=== PATIENT | female | born 1990 | race Caucasian/White ===

== ENCOUNTER 2017-12-12 20:29 | Outpatient (CLI) | payer OTHER ==
[2017-12-12 21:58] VITALS: BP 126/68; PULSE 90; RESP 15; TEMP 97.9
--- NOTE | 2018-01-03 11:01 | P.MSEPDOC ---
Presenting Problems - Arrival Data Date of Arrival on Unit: 12/12/17 Time of Arrival on Unit: 20:45 Mode of Transport: Wheelchair - Complaint OB-Reason for Admission/Chief Complaint: Possible Onset of Labor Comment: 12/11 states contractions every 15 mins Medical History - Information : 3 Para: 2 Term: 2 : 0 Abortions: Spontaneous or Elective: 0 Number of Living Children: 2 - Gestational Age Gestational Age by LLUVIA (wks/days): 38 Weeks and 3 Days - History Complications: Prior , Smoker, Hx. Substance Abuse Comment: THC last used 10/2017 Review of Systems - Review of Systems Constitutional: No problems Breast: No problems ENT: No problems Cardiovascular: No problems Respiratory: No problems Gastrointestinal: No problems Genitourinary: No problems Musculoskeletal: No problems Neurological: No problems Skin: No problems Vital Signs - Temperature Temperature: 97.9 F Temperature Source: Temporal Artery Scan - Pulse Pulse Oximetery Pulse Rate: 90 Pulse Assessment Method: Pulse Oximetry - Respirations Respiratory Rate: 15 Oxygen Delivery Method: Room Air - Blood Pressure Right Arm Blood Pressure: 126/68 Blood Pressure Mean: 87 Blood Pressure Source: Automatic Cuff Medical Screen Scoring (Pre) - Cervical Exam Dilation: 1-3 cm = 1 Membranes: Intact - Uterine Contractions Frequency: > 5 minutes apart = 1 Duration: N/A Intensity: N/A - Maternal Vital Signs Maternal Temperature: N/A Maternal Blood Pressure: N/A Signs of Preeclampsia: N/A Maternal Respirations: N/A - Pain Assessment Pain Location and Character: Back, Abdomen Pain Scale Used: Numeric (1 - 10) Pain Intensity: 2 Pain Management Goal: 2 Pain Description: *Acute Pain Radiation Location: none Pain Frequency: Intermittent Pain Duration: 1 Pain Duration Units: Days Pain Behavior: Fidgeting Pain Aggravating Factors: Contractions - Maternal Trauma Maternal Trauma: N/A - Assessment Baseline FHR: 140 Heart Rate - NICHD Category: Category I (Normal) = 0 NST: Reactive Position: N/A Station: N/A - Total Score Total Score (Pre): 2 - Level of Risk Level of Risk: Low (0-5) Physician Notification (Pre) - Physician Notified Physician Notified Date: 12/12/17 Physician Notified Time: 21:00 Physician/Practitioner Notifed:: Dr Yeung New Order Received: Yes Disposition - Disposition OB Disposition: Discharge to home Discharge Date: 12/12/17 Discharge Time: 22:00 I agree with the RN Medical Screening Exam: Yes Risk & Benefit of care provided described in d/c instruction: Yes Diagnosis: FALSE LABOR AT OR AFTER 37 COMPLETED WEEKS OF GESTATION
== END 2017-12-12 22:00 | disposition home or self-care (01) ==
LOC: FBPOP 20:29
PROVIDERS: ATTEND Obstetrics & Gynecology
DX: O47.1 False labor at or after 37 completed weeks of gestation (principal); Z3A.38 38 weeks gestation of pregnancy
CPT/HCPCS: 59025; G0463; 99213

== ENCOUNTER 2017-12-20 08:35 | Inpatient (IN) | payer MEDICAID, OTHER ==
[2017-12-16 10:35] VITALS: BMI 30.1
[2017-12-20] MEDS ORDERED: OXYTOCIN 10 UNIT/ML 1 ML VIAL IM PRN (10:20)
[2017-12-20] MEDS ORDERED: LIDOCAINE 1% (PF) 10 MG/ML (30 ML SDV) SQ PRN (10:20)
[2017-12-20] MEDS ORDERED: ceFAZolin IN SWFI 2 GM/20 ML SYRINGE IVP ONE (10:23)
[2017-12-20] MEDS ORDERED: CITRIC ACID-SODIUM CITRATE 15 ML CUP PO ONE (10:23)
[2017-12-20] MEDS: LACTATED RINGERS 1,000 ML IV SCH ×2 (10:55→17:58)
[2017-12-20 11:25] LABS: Basophils % (A) 0 %; Eosinophils # (A) 0.2 k/uL (0-0.7); Eosinophils % (A) 2 %; HCT 33.5 % (34.0-46.0); HGB 11.2 gm/dL (11.4-16.0); Lymphocytes # (A) 1.7 k/uL (1.0-4.8); Lymphocytes % (A) 18 %; MCH 29.3 pg (25.0-35.0); MCHC 33.5 g/dL (31.0-37.0); MCV 87.6 fL (80.0-100.0); Mean Platelet Volume 9.4; Monocytes # (A) 0.6 k/uL (0-1.0); Monocytes % (A) 6 %; Neutrophils # (A) 6.6 k/uL (1.3-7.7); Neutrophils % (A) 72 %; Platelet Count 167 k/uL (150-450); RBC 3.82 m/uL (3.80-5.40); RDW 13.9 % (11.5-15.5); WBC 9.2 k/uL (3.8-10.6)
[2017-12-20] MEDS ORDERED: OXYTOCIN 10 UNIT/ML 1 ML VIAL ONE (12:39)
[2017-12-20] MEDS ORDERED: ePHEDrine SULFATE/0.9% NACL/PF 50 MG/5 ML SYRINGE IV ONE (12:39)
[2017-12-20] MEDS ORDERED: ONDANSETRON 4 MG/2 ML VIAL ONE (12:39)
[2017-12-20] MEDS ORDERED: MORPHINE SULFATE (PF) 0.3 MG/0.3 ML SYR ONE (12:39)
[2017-12-20] MEDS ORDERED: KETOROLAC 30 MG/ML 1 ML VIAL ONE (12:39)
[2017-12-20] MEDS ORDERED: NALBUPHINE 10 MG/ML AMPUL ONE (12:39)
[2017-12-20] MEDS ORDERED: ZOLPIDEM 5 MG TAB PO PRN (13:31)
[2017-12-20] MEDS ORDERED: diphenhydrAMINE 25 MG CAP PO PRN (13:31)
[2017-12-20] MEDS ORDERED: ONDANSETRON 4 MG/2 ML VIAL IVP PRN (13:31)
[2017-12-20] MEDS ORDERED: diphenhydrAMINE 50 MG CAP PO PRN (13:31)
[2017-12-20] MEDS ORDERED: HYDROcodone/APAP 7.5-325MG 1 EACH TAB PO PRN (13:31)
[2017-12-20] MEDS ORDERED: METOCLOPRAMIDE 5 MG/ML 2 ML VIAL IVP PRN (13:31)
[2017-12-20] MEDS ORDERED: ACETAMINOPHEN TAB 325 MG TAB PO PRN (13:31)
[2017-12-20] MEDS ORDERED: diphenhydrAMINE 50 MG/ML 1 ML VIAL IVP PRN ×2 (13:31)
[2017-12-20] MEDS ORDERED: SIMETHICONE 80 MG CHEWABLE PO PRN (13:31)
[2017-12-20] MEDS ORDERED: HYDROcodone/APAP 5-325MG 1 EACH TAB PO PRN (13:31)
[2017-12-20] MEDS ORDERED: NALOXONE 0.4 MG/ML 1 ML VIAL IV PRN ×2 (13:31→13:51)
[2017-12-20] MEDS ORDERED: LANOLIN CREAM 5 GM TUBE TOPICAL PRN (13:31)
--- NOTE | 2017-12-20 13:39 | P.HPOB ---
History of Present Illness H&P Date: 12/20/17 Chief Complaint: 39+ weeks intrauterine , previous section, requesting rep The patient is a 27-year-old 3 para 2 scissors or 2 admitted at 39-4/7 weeks as established by last menstrual period and confirmed by 25 week ultrasound. Her has been relatively uncomplicated. She did have an episode of depression with a questionable suicide attempt early in the leading to inpatient management on the psychiatric unit for several weeks. This has not recurred during the . She otherwise has a history of 2 previous low transverse sections and requested a repeat, initially with tubal ligation but has more recently declined tubal ligation. She is also known to be group B strep positive. Obstetrical history: 3 para 2001 with 2 term deliveries without complications. Current statistics are listed in history present illness. EDC of 12/23/2017 was established by last menstrual period and confirmed by an 18 week ultrasound. Laboratory workup demonstrates a blood type of O+ with a negative antibody screen. Rubella status is immune. All the other laboratory workup initially was unremarkable and normal. Early Glucola as well as second trimester Glucola were within normal limits and group B strep status is positive. Gynecologic history: Unremarkable with no history of any infections to include STDs. Review of Systems Review of systems is confined to history of present illness. Past Medical History Past Medical History: GERD/Reflux History of Any Multi-Drug Resistant Organisms: None Reported Past Surgical History: Section, Tonsillectomy Past Anesthesia/Blood Transfusion Reactions: No Reported Reaction Past Psychological History: Depression Smoking Status: Current every day smoker Past Alcohol Use History: Abuse Additional Past Alcohol Use History / Comment(s): SMOKES 1/2 PPD SINCE AGE 13. binge drinks every Tuesday and Sat. night-HAD A GLASS OF WINE AT 30 WEEKS, AND THEN LAST TIME WAS APRIL 2017 Past Drug Use History: Heroin, Marijuana, Prescription Drug Abuse Additional Drug Use History / Comment(s): past history of heroin use last used Mar 2013. LAST TIME MARIJUANA USE OCTOBER 2017 - Past Family History Sister(s) Family Medical History: Cancer Medications and Allergies Home Medications Medication Instructions Recorded Confirmed Type Ranitidine HCl [Zantac] 150 mg PO BID 11/22/13 12/20/17 History Escitalopram [Lexapro] 10 mg PO DAILY #30 tablet 11/29/13 12/20/17 Rx Allergies Allergy/AdvReac Type Severity Reaction Status Date / Time methylphenidate HCl Allergy Confusion Verified 12/20/17 10:24 [From Concerta] Latex, Natural Rubber AdvReac Rash/Hives Verified 12/20/17 10:24 Exam - Vital Signs Vital signs: Vital Signs Temp Pulse Resp BP 12/20/17 10:32 97.9 F 81 16 120/75 Intake and Output 12/19/17 12/20/17 12/20/17 22:59 06:59 14:59 Other: Weight 97.976 kg In general, this is a well-developed, well-nourished white female in no acute distress. Her heart has a regular rhythm and rate without murmur. Her lungs are clear to auscultation bilaterally in all blackman. Her abdomen is gravid, nondistended, has normal active bowel sounds, is soft, nontender, and without any palpable masses aside from uterine fundus. Her extremities are without any cyanosis, clubbing, or edema and are nontender to palpation bilaterally. Digital cervical examination is deferred. Results Result Diagrams: 12/20/17 11:00 Abnormal Lab Results - Last 24 Hours (Table) 12/20/17 Range/Units 11:00 Hgb 11.2 L (11.4-16.0) gm/dL Hct 33.5 L (34.0-46.0) % Assessment and Plan (1) Term Current Visit: Yes Status: Acute Code(s): Z34.80 - ENCOUNTER FOR SUPRVSN OF NORMAL , UNSP TRIMESTER SNOMED Code(s): 02794117 (2) S/P section Current Visit: Yes Status: Acute Code(s): Z98.891 - HISTORY OF UTERINE SCAR FROM PREVIOUS SURGERY SNOMED Code(s): 041552818 Plan: The patient is admitted for repeat low transverse section. We have discussed on multiple levels the possibility of tubal ligation. This will be dependent upon the findings intra-abdominally. Should the uterus have an extremely thin lower uterine segment and further pregnancies appear significantly increased in danger, tubal ligation will be considered. Otherwise , should findings be relatively normal, the plan is to leave her fertility intact. The risks and complications of the procedure have been thoroughly discussed and she has understood all these and agreed to proceed.
[2017-12-20] MEDS ORDERED: OXYTOCIN 20 UNITS/1000 ML NS 1,000 ML IV SCH (13:45)
--- NOTE | 2017-12-20 13:45 | P.OP ---
Date of Procedure: 12/20/17 Preoperative Diagnosis: #1. Term , previous section, requesting repeat Postoperative Diagnosis: Same Procedure(s) Performed: #1. Repeat low transverse section Anesthesia: spinal Surgeon: Adonis Astorga Salesperson Pianos And Organs #1: Akanksha Yeung Estimated Blood Loss (ml): 400 IV fluids (ml): 1,000 Urine output (ml): 250 Pathology: other (Placenta) Condition: stable Disposition: PACU Operative Findings: Intraoperatively, the patient was noted to have mild to moderate scarring at the level of the fascia and muscles. The uterus itself appeared relatively free of scarring and had a relatively thick lower uterine segment. As result, tubal ligation was not performed. She was delivered of a viable 7 lbs. 7 oz. baby boy with Apgars of 8 at 1 minute and 9 at 5 minutes. The uterus, tubes, and ovaries were otherwise normal to inspection. The placenta was delivered manually, intact, and grossly normal with a grossly normal three-vessel cord. Description of Procedure: The patient was prepped and draped in usual fashion after spinal anesthesia was administered by the anesthesiologist. A Pfannenstiel incision was made through pre-existing scar and extended into the abdominal cavity without difficulty. The bladder peritoneum was left intact as it remained distal to the chosen incision site. A 2 cm incision was made in the transverse plane of the lower uterine segment to enter the uterus at which time clear fluid was noted. Incision was expanded in both directions using bandage scissors as well as bluntly. The head was delivered up and through the incision with some difficulty secondary to abdominal wall scarring. After delivery, the nose and mouth were thoroughly suctioned. Remainder of the infant was delivered onto the surgical field where the cord was doubly clamped, cut, and the infant passed for resuscitative measures with weight and Apgars as noted above. A segment of cord was doubly clamped, cut, and set aside should cord gases become necessary. The placenta was delivered manually and intact as noted above. The uterus was exteriorized and the interior cavity of uterus swept of any remaining placental or membranous fragments. The margins of the incision were grasped with Contreras clamps and the incision closed in 2 layers. The first layer was a running locking stitch of 0 chromic catgut followed by a running imbricating layer of 0 chromic catgut. Following closure, any small points of bleeding were made hemostatic with the Bovie. The posterior cul-de-sac was suctioned with a guard and the uterine and ovarian findings were normal as noted above. Uterus was replaced within the abdominal cavity and the gutters were swept of any remaining blood, fluid, or clot. The incision was reexamined and found to be hemostatic. The parietal peritoneum was loosely reapproximated and layer of muscles examined and made hemostatic with the Bovie. The fascia was closed with 2 running stitches of 0 Vicryl proceeding from the lateral points to the midpoint. The subcutaneous tissues were irrigated, made hemostatic with the Bovie, and reapproximated with a running stitch of 30 plain catgut. The skin was reapproximated with a running subcuticular stitch of 4-0 Vicryl followed by half-inch Steri-Strips placed with Mastisol. Estimated blood loss for the case was approximately 400 mL. There were no complications. All sponge, instrument, and needle counts were correct. Both mother and are resting comfortably in recovery.
[2017-12-20] MEDS ORDERED: NALBUPHINE 10 MG/ML AMPUL IV PRN (13:51)
[2017-12-20] MEDS ORDERED: MORPHINE SULFATE 2 MG/ML SYRINGE IVP PRN (13:51)
[2017-12-20] MEDS: IBUPROFEN 600 MG TAB PO PRN (20:31)
[2017-12-20] MEDS: SENNOSIDES-DOCUSATE SODIUM 1 EACH TAB PO SCH (20:32)
[2017-12-21] MEDS: LACTATED RINGERS 1,000 ML IV SCH ×2 (01:49→15:08)
--- NOTE | 2017-12-21 07:10 | P.PN ---
Progress Note - Text Progress Note Date: 12/21/17 Postoperative day 1 status post section under spinal anesthesia, and intrathecal morphine given for postoperative analgesia, patient doing well, there is no anesthesia related complications, Patient had no headache, vital signs stable , Assessment and plan= postop day 1 status post , doing well there is no anesthesia related complication.
[2017-12-21] MEDS: IBUPROFEN 600 MG TAB PO PRN ×2 (07:38→15:32)
[2017-12-21] MEDS: SENNOSIDES-DOCUSATE SODIUM 1 EACH TAB PO SCH ×2 (08:07→20:41)
[2017-12-21 08:09] LABS: Basophils % (A) 0 %; Eosinophils # (A) 0.2 k/uL (0-0.7); Eosinophils % (A) 2 %; HCT 27.7 % (34.0-46.0); Lymphocytes # (A) 1.5 k/uL (1.0-4.8); Lymphocytes % (A) 14 %; MCH 29.6 pg (25.0-35.0); MCHC 33.6 g/dL (31.0-37.0); MCV 88.2 fL (80.0-100.0); Mean Platelet Volume 9.8; Monocytes # (A) 0.7 k/uL (0-1.0); Monocytes % (A) 7 %; Neutrophils % (A) 76 %; Platelet Count 131 k/uL (150-450); RBC 3.14 m/uL (3.80-5.40); RDW 13.9 % (11.5-15.5); WBC 10.6 k/uL (3.8-10.6)
[2017-12-21 08:17] LABS: HGB 9.3 gm/dL (11.4-16.0)
--- NOTE | 2017-12-21 08:36 | P.PNOBGPC ---
Subjective - Subjective Patient reports: Reports appetite normal, Reports voiding normally, Reports pain well controlled, Reports ambulating normally : doing well Objective - Vital Signs Latest vital signs: Vital Signs Temp Pulse Resp BP Pulse Ox 12/21/17 08:00 98.0 F 64 16 104/55 12/21/17 04:00 97.8 F 66 18 120/66 12/20/17 23:42 97.8 F 88 15 122/65 12/20/17 23:41 88 18 12/20/17 22:00 18 100 12/20/17 20:00 97.8 F 88 18 113/69 12/20/17 18:00 16 12/20/17 16:26 16 12/20/17 15:25 96.4 F L 80 14 112/62 12/20/17 15:05 73 14 121/62 12/20/17 14:51 14 98 12/20/17 14:27 69 14 117/55 12/20/17 14:20 72 14 124/58 100 12/20/17 14:05 73 14 118/66 12/20/17 13:51 14 98 12/20/17 13:49 69 14 125/55 12/20/17 13:35 96.5 F L 79 16 113/56 12/20/17 10:32 97.9 F 81 16 120/75 Intake and Output 12/20/17 12/21/17 12/21/17 22:59 06:59 14:59 Intake Total 1300 700 Output Total 720 450 Balance 580 250 Intake: IV 1300 Lactated Ringers 1,000 ml 1300 @ 125 mls/hr IV .Q8H [facility] Rx#:[id number] Oral 700 Output: Urine 720 450 Uretheral (Gimenez) 420 - Exam Extremities: Present: normal Abdomen: Present: normal appearance, soft. Absent: distention, tenderness Incision: Present: normal, dry, intact Uterus: Present: normal, firm (Uterine fundus as tonic and nontender just below the umbilicus.) - Labs Labs: Abnormal Lab Results - Last 24 Hours (Table) 12/20/17 12/21/17 Range/Units 11:00 07:16 RBC 3.14 L (3.80-5.40) m/uL Hgb 11.2 L 9.3 L D (11.4-16.0) gm/dL Hct 33.5 L 27.7 L (34.0-46.0) % Plt Count 131 L (150-450) k/uL Neutrophils # 8.0 H (1.3-7.7) k/uL Assessment and Plan (1) Term Current Visit: Yes Status: Acute Code(s): Z34.80 - ENCOUNTER FOR SUPRVSN OF NORMAL , UNSP TRIMESTER SNOMED Code(s): 11576331 (2) S/P section Current Visit: Yes Status: Acute Code(s): Z98.891 - HISTORY OF UTERINE SCAR FROM PREVIOUS SURGERY SNOMED Code(s): 390553177 Plan: Continue routine postoperative care. I do anticipate discharge home tomorrow pending no complications. I have encouraged patient ambulating the halls at least 4 times daily. Her diet has already been advanced to regular.
--- NOTE | 2017-12-21 12:08 | P.DS ---
Providers Date of admission: 12/20/17 10:05 Expected date of discharge: 12/21/17 Attending physician: Adonis Astorga Primary care physician: Yrn Harry - Discharge Diagnosis(es) (1) Term Current Visit: Yes Status: Acute (2) S/P section Current Visit: Yes Status: Acute Hospital Course: the patient is a 27-year-old 3 para 2001 admitted at 39-4/7 weeks by good dating parameters. She is admitted for repeat low transverse section for which she signed consent in the office. Her was essentially uncomplicated though she was hospitalized for psychiatric concerns early in the . The remainder of her was without any psychiatric issues and she remained stable on Lexapro. She was taken to the operating room where she underwent repeat low transverse section in an incompetent fashion was delivered of a viable 7 lbs. 7 oz. baby boy with Apgars of 8 at 1 minute and 9 at 5 minutes. Her and postoperative course was unremarkable with vital signs remaining stable and her temperature was afebrile throughout. She requested discharge home on postoperative day #1 and was performing all activities of daily living at that time. As result, she was deemed stable for discharge and discharged to follow-up in the office in 2 weeks for an incision check and 6 weeks routinely. Discharge instructions included calling for any significantly increased bleeding or foul-smelling lochia, significantly increased fever abdominal pain, perineal complaints, breast complaints, incisional complaints, or anything else that concerned her. She is additionally instructed to have nothing in the vagina for at least 6 weeks time to include intercourse and to abstain from any heavy lifting over the same period of time. She was lastly instructed to do no driving until off of all pain medications or 2 weeks' time, whichever came first.she understood her instructions and agrees to follow up as noted above. Discharge medications included her normal home medications as well as continued vitamins as she has opted to breast-feed. She was additionally provided with a prescription for Tylenol 3, 1-2 by mouth every 6 hours when necessary pain, #20 dispensed with no refills. Maternal blood type is O+ and rubella status is immune. Discharge hemoglobin and hematocrit were9.3 and 27.7 respectively. As result, she was instructed to use iron sulfate over the next month on a daily basis to attempt to rebuild her blood count. Procedures: #1. Repeat low transverse section Patient Condition at Discharge: Good Plan - Discharge Summary Discharge Rx Participant: Yes New Discharge Prescriptions: No Action Ranitidine HCl [Zantac] 150 mg PO BID Escitalopram [Lexapro] 10 mg PO DAILY #30 tablet Discharge Medication List Ranitidine HCl [Zantac] 150 mg PO BID 11/22/13 [History] Escitalopram [Lexapro] 10 mg PO DAILY #30 tablet 11/29/13 [Rx] Follow up Appointment(s)/Referral(s): Adonis Astorga MD [STAFF PHYSICIAN] - 2 Weeks Discharge Disposition: HOME SELF-CARE
[2017-12-22 00:10] VITALS: RESP 16
[2017-12-22] MEDS: IBUPROFEN 600 MG TAB PO PRN (08:21)
[2017-12-22] MEDS: SENNOSIDES-DOCUSATE SODIUM 1 EACH TAB PO SCH (08:22)
[2017-12-22 08:28] VITALS: BP 119/62; PULSE 83; TEMP 98.4
== END 2017-12-22 10:40 | disposition home or self-care (01) | DRG 766 ==
LOC: 4FBP 10:05
PROVIDERS: ADMIT Obstetrics & Gynecology; ATTEND Obstetrics & Gynecology
PROC: 10D00Z1 Extraction of Products of Conception, Low, Open Approach (ICD-10-PCS; principal; 2017-12-20 12:39)
DX: O34.211 Maternal care for low transverse scar from previous cesarean delivery (principal); N85.8 Other specified noninflammatory disorders of uterus; Z3A.39 39 weeks gestation of pregnancy; Z37.0 Single live birth; F17.200 Nicotine dependence, unspecified, uncomplicated; F32.9 Major depressive disorder, single episode, unspecified; K21.9 Gastro-esophageal reflux disease without esophagitis; O99.334 Smoking (tobacco) complicating childbirth; O99.344 Other mental disorders complicating childbirth; O99.62 Diseases of the digestive system complicating childbirth; O99.824 Streptococcus B carrier state complicating childbirth; Z91.5 Personal history of self-harm; Z88.8 Allergy status to other drugs, medicaments and biological substances; Z91.040 Latex allergy status; F11.11 Opioid abuse, in remission; F12.11 Cannabis abuse, in remission
CPT/HCPCS: 85025; 86850; 86900; 86901; 88307

== ENCOUNTER 2018-03-05 20:42 | Emergency (ER) | payer OTHER ==
[2018-03-05 21:07] LABS: Appearance,Urine Clear (Clear); Bilirubin,Urine Negative (Negative); Blood,Urine Negative (Negative); Color,Urine Colorless; Glucose,Urine (UA) Negative (Negative); Ketones,Urine Negative (Negative); Leukocyte Esterase,Urine Negative (Negative); Nitrite,Urine Negative (Negative); Protein,Urine Negative (Negative); Specific Gravity,Urine 1.004 (1.001-1.035); Urobilinogen,Urine <2.0 mg/dL (<2.0)
[2018-03-05] MEDS ORDERED: SODIUM CHLORIDE 0.9% 2,000 ML IV STA (22:53)
[2018-03-05] MEDS ORDERED: ONDANSETRON 4 MG/2 ML VIAL IVP STA (22:53)
[2018-03-05 23:23] LABS: Basophils % (A) 1 %; Eosinophils # (A) 0.4 k/uL (0-0.7); Eosinophils % (A) 6 %; HCT 37.2 % (34.0-46.0); HGB 12.4 gm/dL (11.4-16.0); Lymphocytes # (A) 2.9 k/uL (1.0-4.8); Lymphocytes % (A) 39 %; MCH 28.2 pg (25.0-35.0); MCHC 33.3 g/dL (31.0-37.0); MCV 84.7 fL (80.0-100.0); Mean Platelet Volume 8.5; Monocytes # (A) 0.5 k/uL (0-1.0); Monocytes % (A) 7 %; Neutrophils # (A) 3.5 k/uL (1.3-7.7); Neutrophils % (A) 46 %; Platelet Count 191 k/uL (150-450); RBC 4.39 m/uL (3.80-5.40); RDW 14.7 % (11.5-15.5); WBC 7.5 k/uL (3.8-10.6)
[2018-03-05 23:33] LABS: ALT 55 U/L (9-52); AST 31 U/L (14-36); Albumin 4.1 g/dL (3.5-5.0); Alkaline Phosphatase 86 U/L (38-126); Anion Gap 8 mmol/L; Blood Urea Nitrogen 9 mg/dL (7-17); Calcium 9.4 mg/dL (8.4-10.2); Carbon Dioxide 23 mmol/L (22-30); Chloride 109 mmol/L (98-107); Glucose 89 mg/dL (74-99); Lipase 162 U/L (23-300); Magnesium 1.8 mg/dL (1.6-2.3); Potassium 3.9 mmol/L (3.5-5.1); Sodium 140 mmol/L (137-145); Total Bilirubin 0.3 mg/dL (0.2-1.3)
[2018-03-05 23:51] VITALS: RESP 17
--- NOTE | 2018-03-06 00:05 | ED ---
General Adult HPI - General Chief complaint: Nausea/Vomiting/Diarrhea Stated complaint: Finger Numbness/ flu symptoms Time Seen by Provider: 03/05/18 22:41 Source: patient Mode of arrival: ambulatory Limitations: no limitations - History of Present Illness Initial comments: Patient is a 27-year-old female presenting for nausea and vomiting. Patient states that her had "the flu" and that she thinks she contracted the same illness. For the last 4 days, she has had approximately 10 episodes of nausea, vomiting, diarrhea. She admits to chills but no fevers. She also denies any abdominal pain, dysuria or vaginal bleeding or discharge. - Related Data Home Medications Medication Instructions Recorded Confirmed Ranitidine HCl [Zantac] 150 mg PO BID 11/22/13 03/05/18 Previous Rx's Medication Instructions Recorded Escitalopram [Lexapro] 10 mg PO DAILY #30 tablet 11/29/13 Ondansetron Odt [Zofran Odt] 4 mg PO Q8HR PRN #15 tab 03/06/18 Allergies Allergy/AdvReac Type Severity Reaction Status Date / Time methylphenidate HCl Allergy Confusion Verified 03/05/18 20:57 [From Concerta] Latex, Natural Rubber AdvReac Rash/Hives Verified 03/05/18 20:57 Review of Systems ROS Statement: Those systems with pertinent positive or pertinent negative responses have been documented in the HPI. Constitutional: Positive for chills, negative for fatigue and fever. HENT: Negative for congestion. Respiratory: Negative for chest tightness, shortness of breath and wheezing. Negative for cough Cardiovascular: Negative for chest pain and palpitations. Gastrointestinal: Negative for abdominal pain. Negative for abdominal distention , positive for diarrhea, nausea and vomiting. Genitourinary: Negative for dysuria. Musculoskeletal: Negative for back pain, neck pain and neck stiffness. Skin: Negative for color change. Neurological: Negative for dizziness, speech difficulty, weakness and light- headedness. Psychiatric/Behavioral: Negative for agitation and confusion. Negative for anxiety ROS Other: All systems not noted in ROS Statement are negative. Past Medical History Past Medical History: GERD/Reflux History of Any Multi-Drug Resistant Organisms: None Reported Past Surgical History: Section, Tonsillectomy Past Anesthesia/Blood Transfusion Reactions: No Reported Reaction Past Psychological History: Anxiety, Depression Smoking Status: Current every day smoker Past Alcohol Use History: Abuse Past Drug Use History: Heroin, Marijuana, Prescription Drug Abuse - Past Family History Sister(s) Family Medical History: Cancer General Exam - General Exam Comments Initial Comments: Constitutional: Pt is oriented to person, place, and time. Pt appears well- developed and well-nourished. No distress. HENT: Head: Normocephalic and atraumatic. Eyes: EOM are normal. Neck: Normal range of motion. Neck supple. Cardiovascular: Normal rate, regular rhythm, S1 normal, S2 normal and normal heart sounds. Exam reveals no gallop and no friction rub. No murmur heard. Pulmonary/Chest: Effort normal and breath sounds normal. No tachypnea and no bradypnea. No respiratory distress. No wheezes or rales noted. Abdominal: Soft. Bowel sounds are normal. Pt exhibits no shifting dullness, no distension, no pulsatile liver, no fluid wave, no abdominal bruit and no ascites. There is no tenderness. There is no rigidity, no rebound, no guarding, no tenderness at McBurney's point and negative Minaya's sign. Musculoskeletal: Normal range of motion. Neurological: Pt is alert and oriented to person, place, and time. No cranial nerve deficit. Skin: Skin is warm and dry. No rash noted. Pt is not diaphoretic. No erythema. No pallor. Psychiatric: Pt has a normal mood and affect. Pt behavior is normal. Thought content normal. Limitations: no limitations Course Vital Signs 03/05/18 03/05/18 20:55 23:49 Temperature 98.7 F Pulse Rate 78 65 Respiratory 18 17 Rate Blood Pressure 131/71 122/71 O2 Sat by Pulse 99 99 Oximetry Medical Decision Making - Medical Decision Making Laboratory studies showed that there was no significant leukocytosis and there was mild elevation of ALT measured at 55. Urinalysis was negative for both infection and . Because physical exam was unremarkable, advance imaging was not completed. Patient was given IV fluids as well as Zofran and she stated that her symptoms completely resolved.It was explained that while there does not appear to be an emergent process, the etiology of the symptoms are still unclear but possibly related to viral illness and may need further workup as an outpatient if symptoms continue. Patient was reexamined prior to d/ c and found to be resting comfortably in bed in no acute distress.Explained all labs and diagnostic test results and that we will discharge the patient home and patient is to follow up with PCP in 1-2 days and return to the ED if symptoms worsen. Pt is agreeable to plan. - Lab Data Result diagrams: 03/05/18 23:00 03/05/18 23:00 Lab Results 03/05/18 03/05/18 03/05/18 Range/Units 20:58 20:58 23:00 WBC 7.5 (3.8-10.6) k/uL RBC 4.39 (3.80-5.40) m/uL Hgb 12.4 (11.4-16.0) gm/dL Hct 37.2 (34.0-46.0) % MCV 84.7 (80.0-100.0) fL MCH 28.2 (25.0-35.0) pg MCHC 33.3 (31.0-37.0) g/dL RDW 14.7 (11.5-15.5) % Plt Count 191 (150-450) k/uL Neutrophils % 46 % Lymphocytes % 39 % Monocytes % 7 % Eosinophils % 6 % Basophils % 1 % Neutrophils # 3.5 (1.3-7.7) k/uL Lymphocytes # 2.9 (1.0-4.8) k/uL Monocytes # 0.5 (0-1.0) k/uL Eosinophils # 0.4 (0-0.7) k/uL Basophils # 0.0 (0-0.2) k/uL Sodium (137-145) mmol/L Potassium (3.5-5.1) mmol/L Chloride (98-107) mmol/L Carbon Dioxide (22-30) mmol/L Anion Gap mmol/L BUN (7-17) mg/dL Creatinine (0.52-1.04) mg/dL Est GFR (CKD-EPI)AfAm (>60 ml/min/1.73 sqM) Est GFR (CKD-EPI)NonAf (>60 ml/min/1.73 sqM) Glucose (74-99) mg/dL Calcium (8.4-10.2) mg/dL Magnesium (1.6-2.3) mg/dL Total Bilirubin (0.2-1.3) mg/dL AST (14-36) U/L ALT (9-52) U/L Alkaline Phosphatase (38-126) U/L Total Protein (6.3-8.2) g/dL Albumin (3.5-5.0) g/dL Lipase (23-300) U/L Urine Color Colorless Urine Appearance Clear (Clear) Urine pH 7.0 (5.0-8.0) Ur Specific Jar[place] 1.004 (1.001-1.035) Urine Protein Negative (Negative) Urine Glucose (UA) Negative (Negative) Urine Ketones Negative (Negative) Urine Blood Negative (Negative) Urine Nitrite Negative (Negative) Urine Bilirubin Negative (Negative) Urine Urobilinogen <2.0 (<2.0) mg/dL Ur Leukocyte Esterase Negative (Negative) Urine HCG, Qual Not Detected (Not Detectd) 03/05/18 Range/Units 23:00 WBC (3.8-10.6) k/uL RBC (3.80-5.40) m/uL Hgb (11.4-16.0) gm/dL Hct (34.0-46.0) % MCV (80.0-100.0) fL MCH (25.0-35.0) pg MCHC (31.0-37.0) g/dL RDW (11.5-15.5) % Plt Count (150-450) k/uL Neutrophils % % Lymphocytes % % Monocytes % % Eosinophils % % Basophils % % Neutrophils # (1.3-7.7) k/uL Lymphocytes # (1.0-4.8) k/uL Monocytes # (0-1.0) k/uL Eosinophils # (0-0.7) k/uL Basophils # (0-0.2) k/uL Sodium 140 (137-145) mmol/L Potassium 3.9 (3.5-5.1) mmol/L Chloride 109 H (98-107) mmol/L Carbon Dioxide 23 (22-30) mmol/L Anion Gap 8 mmol/L BUN 9 (7-17) mg/dL Creatinine 0.60 (0.52-1.04) mg/dL Est GFR (CKD-EPI)AfAm >90 (>60 ml/min/1.73 sqM) Est GFR (CKD-EPI)NonAf >90 (>60 ml/min/1.73 sqM) Glucose 89 (74-99) mg/dL Calcium 9.4 (8.4-10.2) mg/dL Magnesium 1.8 (1.6-2.3) mg/dL Total Bilirubin 0.3 (0.2-1.3) mg/dL AST 31 (14-36) U/L ALT 55 H (9-52) U/L Alkaline Phosphatase 86 (38-126) U/L Total Protein 7.0 (6.3-8.2) g/dL Albumin 4.1 (3.5-5.0) g/dL Lipase 162 (23-300) U/L Urine Color Urine Appearance (Clear) Urine pH (5.0-8.0) Ur Specific [place] (1.001-1.035) Urine Protein (Negative) Urine Glucose (UA) (Negative) Urine Ketones (Negative) Urine Blood (Negative) Urine Nitrite (Negative) Urine Bilirubin (Negative) Urine Urobilinogen (<2.0) mg/dL Ur Leukocyte Esterase (Negative) Urine HCG, Qual (Not Detectd) Disposition Clinical Impression: Nausea and vomiting Disposition: HOME SELF-CARE Condition: Good Instructions: Acute Nausea and Vomiting (ED) Prescriptions: Ondansetron Odt [Zofran Odt] 4 mg PO Q8HR PRN #15 tab PRN Reason: Nausea And Vomiting Is patient prescribed a controlled substance at d/c from ED?: No Referrals: Yrn Harry MD [Primary Care Provider] - 1-2 days Time of Disposition: 00:05
[2018-03-06 00:54] VITALS: BP 123/86; PULSE 58; TEMP 98.2
== END 2018-03-06 00:55 | disposition home or self-care (01) ==
LOC: EC 20:42
DX: R11.2 Nausea with vomiting, unspecified (principal); R74.0 Nonspecific elevation of levels of transaminase and lactic acid dehydrogenase [LDH]; R19.7 Diarrhea, unspecified; R68.83 Chills (without fever); K21.9 Gastro-esophageal reflux disease without esophagitis; F17.200 Nicotine dependence, unspecified, uncomplicated; Z79.899 Other long term (current) drug therapy; Z88.8 Allergy status to other drugs, medicaments and biological substances; Z91.040 Latex allergy status
CPT/HCPCS: 36415; 80053; 83690; 83735; 85025; 81003; 81025; 99284; 96374; 96361; J2405

== ENCOUNTER 2019-04-02 19:40 | Outpatient (CLI) | payer OTHER ==
[2019-04-02 23:52] VITALS: BP 117/72; PULSE 83; RESP 16; TEMP 98.2
--- NOTE | 2019-05-07 08:09 | P.MSEPDOC ---
Presenting Problems - Arrival Data Date of Arrival on Unit: 04/02/19 Time of Arrival on Unit: 19:42 Mode of Transport: Ambulatory - Complaint OB-Reason for Admission/Chief Complaint: Possible Onset of Labor Comment: pt presents to tr with c/o cntrx on and off all day yesterday, worsening last. night, and continuing all day. pt states she called the office this morning and was told. to "get checked out." pt denies any bleeding or leaking. pt states cntrx are 6-10. minutes apart. denies any bleeding or leaking Medical History - Information : 4 Para: 3 Term: 0 : 0 Abortions: Spontaneous or Elective: 0 Number of Living Children: 3 - Gestational Age Gestational Age by LLUVIA (wks/days): 37 Weeks and 4 Days - History Complications: GBS+, Hx. Substance Abuse Comment: history of thc usage in Review of Systems - Review of Systems Constitutional: No problems Breast: No problems ENT: No problems Cardiovascular: No problems Respiratory: No problems Gastrointestinal: No problems Genitourinary: No problems Musculoskeletal: No problems Neurological: No problems Skin: No problems Vital Signs - Temperature Temperature: 98.2 F - Pulse Right Pulse Rate: 83 Pulse Assessment Method: Automatic Cuff - Respirations Respiratory Rate: 16 Oxygen Delivery Method: Room Air O2 Sat by Pulse Oximetry: 98 - Blood Pressure Right Arm Blood Pressure: 117/72 Blood Pressure Mean: 87 Blood Pressure Source: Automatic Cuff Medical Screen Scoring (Pre) - Cervical Exam Dilation: 1-3 cm = 1 Membranes: Intact - Uterine Contractions Frequency: > 5 minutes apart = 1 Duration: N/A Intensity: N/A - Maternal Vital Signs Maternal Temperature: N/A Maternal Blood Pressure: N/A Signs of Preeclampsia: N/A Maternal Respirations: N/A - Maternal Trauma Maternal Trauma: N/A - Assessment - Baby A Baseline FHR: 115 Heart Rate - NICHD Category: Category I (Normal) = 0 NST: Reactive Position: N/A Station: N/A - Total Score - Baby A Total Score - Baby A: 2 - Total Score - Baby B Total Score - Baby B: 2 - Total Score - Baby C Total Score - Baby C: 2 - Level of Risk - Baby A Level of Risk - Baby A: Low (0-5) - Level of Risk - Baby B Level of Risk - Baby B: Low (0-5) - Level of Risk - Baby C Level of Risk - Baby C: Low (0-5) Physician Notification (Pre) - Physician Notified Physician Notified Date: 04/02/19 Physician Notified Time: 21:12 Physician/Practitioner Notifed:: Dr Yeung Spoke With: Dr Yeung New Order Received: Yes - Notification Comment Comment: Dr Yeung updated by phone of reactive NST. CAT 1 FHT. 4 contractions in 1 hour. mild in nature with mild cramping. PT's bp wnl limits. denies pain besides mild. cramping. orders to recheck cervix and if no change pt may discharge home and keep appt. on Tuesday this week with Dr Saleh Disposition - Disposition OB Disposition: Physician follow up in office, Discharge to home Discharge Date: 04/02/19 Discharge Time: 21:20 I agree with the RN Medical Screening Exam: Yes Risk & Benefit of care provided described in d/c instruction: Yes Diagnosis: FALSE LABOR AT OR AFTER 37 COMPLETED WEEKS OF GESTATION
== END 2019-04-02 21:20 | disposition home or self-care (01) ==
LOC: FBPOP 19:40
PROVIDERS: ATTEND Obstetrics & Gynecology
DX: O47.1 False labor at or after 37 completed weeks of gestation (principal); Z3A.37 37 weeks gestation of pregnancy
CPT/HCPCS: 59025; G0463; 99213

== ENCOUNTER 2019-04-16 11:02 | Outpatient (CLI) | payer OTHER ==
[2019-04-16 12:07] VITALS: BP 123/74; PULSE 90; RESP 16; TEMP 97.3
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
== END 2019-04-16 12:50 | disposition home or self-care (01) ==
LOC: FBPOP 11:02
PROVIDERS: ATTEND Obstetrics & Gynecology
DX: O26.93 Pregnancy related conditions, unspecified, third trimester (principal); Z3A.39 39 weeks gestation of pregnancy
CPT/HCPCS: 59025; G0463; 99213

== ENCOUNTER 2019-04-17 20:24 | Outpatient (CLI) | payer OTHER ==
[2019-04-17 20:40] VITALS: BP 126/67; PULSE 89; RESP 16; TEMP 98.3
--- NOTE | 2019-05-07 08:03 | P.MSEPDOC ---
Presenting Problems - Arrival Data Date of Arrival on Unit: 04/17/19 Time of Arrival on Unit: 20:24 Mode of Transport: Ambulatory - Complaint OB-Reason for Admission/Chief Complaint: Possible Onset of Labor Comment: contractions began yesterday after her dog jumped on her abdomen, pt states the contractions became stronger a few hours ago and that she was timing them every 4-6 minutes. Medical History - Information : 4 Para: 3 Term: 3 : 0 Abortions: Spontaneous or Elective: 0 Number of Living Children: 3 - Gestational Age Gestational Age by LLUVIA (wks/days): 39 Weeks and 5 Days - History Complications: Prior , Smoker Comment: pt states she also smokes marijuana at night before bed. Review of Systems - Review of Systems Constitutional: No problems Breast: No problems ENT: No problems Cardiovascular: No problems Respiratory: No problems Gastrointestinal: No problems Genitourinary: No problems Musculoskeletal: No problems Neurological: No problems Skin: No problems Vital Signs - Temperature Temperature: 98.3 F Temperature Source: Oral - Pulse Right Brachial Pulse Rate: 89 Pulse Assessment Method: Pulse Oximetry - Respirations Respiratory Rate: 16 Oxygen Delivery Method: Room Air O2 Sat by Pulse Oximetry: 98 - Blood Pressure Right Arm Blood Pressure: 126/67 Blood Pressure Mean: 86 Blood Pressure Source: Automatic Cuff Medical Screen Scoring (Pre) - Cervical Exam Dilation: 0 cm = 0 Membranes: Intact - Uterine Contractions Frequency: > 5 minutes apart = 1 Duration: > 40 seconds = 2 Intensity: N/A - Maternal Vital Signs Maternal Temperature: N/A Maternal Blood Pressure: N/A Signs of Preeclampsia: N/A Maternal Respirations: N/A - Maternal Trauma Maternal Trauma: N/A - Assessment - Baby A Baseline FHR: 125 Heart Rate - NICHD Category: Category I (Normal) = 0 NST: Reactive Position: N/A Station: N/A - Total Score - Baby A Total Score - Baby A: 3 - Total Score - Baby B Total Score - Baby B: 3 - Total Score - Baby C Total Score - Baby C: 3 - Level of Risk - Baby A Level of Risk - Baby A: Low (0-5) - Level of Risk - Baby B Level of Risk - Baby B: Low (0-5) - Level of Risk - Baby C Level of Risk - Baby C: Low (0-5) Physician Notification (Pre) - Physician Notified Physician Notified Date: 04/17/19 Physician Notified Time: 20:05 Physician/Practitioner Notifed:: Dr Yeung Spoke With: Dr Yeung via telephone New Order Received: Yes - Notification Comment Comment: pt here for contractions (pt repeat C/S), states contractions 4-6 minutes at home. here are tracing 8-12 min apart. cervix closed, 50%, high. order to recheck cervix after an hour and if no cervical change to discharge pt home with instructions for no intercourse, increase fluids and to follow up with Dr Astorga. Disposition - Disposition OB Disposition: Physician follow up in office, Discharge to home Discharge Date: 04/17/19 Discharge Time: 21:47 I agree with the RN Medical Screening Exam: Yes Risk & Benefit of care provided described in d/c instruction: Yes Diagnosis: FALSE LABOR AT OR AFTER 37 COMPLETED WEEKS OF GESTATION
== END 2019-04-17 21:47 | disposition home or self-care (01) ==
LOC: FBPOP 20:24
PROVIDERS: ATTEND Obstetrics & Gynecology
DX: O47.1 False labor at or after 37 completed weeks of gestation (principal)
CPT/HCPCS: 59025; G0463; 99213

== ENCOUNTER 2019-04-20 08:07 | Inpatient (IN) | payer OTHER ==
[2019-04-20] MEDS ORDERED: CITRIC ACID-SODIUM CITRATE 15 ML CUP PO ONE (08:24)
[2019-04-20] MEDS ORDERED: LACTATED RINGERS 1,000 ML IV SCH (08:30)
[2019-04-20 08:49] LABS: Basophils % (A) 0 %; Eosinophils # (A) 0.2 k/uL (0-0.7); Eosinophils % (A) 2 %; HGB 11.5 gm/dL (11.4-16.0); Lymphocytes # (A) 1.7 k/uL (1.0-4.8); Lymphocytes % (A) 16 %; MCH 29.3 pg (25.0-35.0); MCHC 32.8 g/dL (31.0-37.0); MCV 89.4 fL (80.0-100.0); Mean Platelet Volume 9.6; Monocytes # (A) 0.8 k/uL (0-1.0); Monocytes % (A) 7 %; Neutrophils % (A) 72 %; Platelet Count 174 k/uL (150-450); RBC 3.92 m/uL (3.80-5.40); RDW 13.3 % (11.5-15.5); WBC 11.2 k/uL (3.8-10.6)
[2019-04-20 08:50] VITALS: BMI 31.6
--- NOTE | 2019-04-20 09:45 | P.HPOB ---
History of Present Illness H&P Date: 04/20/19 Chief Complaint: 40 and one sevenths weeks, previous 3, undesired fertility The patient is a 29-year-old 4 para 3003 admitted at 40 and one sevenths weeks as established by a 6 week ultrasound. She is admitted for repeat low transverse section having had 3 previous sections. She additionally has requested intraoperative bilateral tubal occlusion with Filshie clips and signed consent to that effect in the office. Her has o therwise been essentially uncomplicated though group B strep status is positive. Obstetrical history: 4 para 3003 with 3 term sections as noted above. Current statistics are listed in history of present illness. EDC of 04/19/2019 was established by 6 week ultrasound. Laboratory workup demonstrates a blood type of O+ with a negative antibody screen. Rubella status is immune. Remainder of the laboratory workup was within normal limits. Early Glucola as well as second trimester Glucola were within normal limits. Group B strep status is positive. Gynecologic history: Unremarkable with no history of any infections to include STDs. Review of Systems Review of systems is confined to history of present illness. Past Medical History Past Medical History: GERD/Reflux History of Any Multi-Drug Resistant Organisms: None Reported Past Surgical History: Section, Tonsillectomy Past Anesthesia/Blood Transfusion Reactions: No Reported Reaction Past Psychological History: Anxiety, Bipolar, Depression, Schizophrenia Smoking Status: Current every day smoker Past Drug Use History: Marijuana Additional Drug Use History / Comment(s): past history of heroin use last used Mar 2012, every day marijuana use - Past Family History Sister(s) Family Medical History: Cancer Father Family Medical History: Hypertension Medications and Allergies Home Medications Medication Instructions Recorded Confirmed Type Ondansetron Odt [Zofran Odt] 4 mg PO Q8HR PRN #15 tab 03/06/18 04/20/19 Rx Omeprazole [PriLOSEC] 40 mg PO DAILY 04/02/19 04/20/19 History RX: Melatonin 3 mg PO HS 04/17/19 04/20/19 History Allergies Allergy/AdvReac Type Severity Reaction Status Date / Time methylphenidate HCl Allergy Anaphylaxis Verified 04/20/19 08:23 [From Concerta] Latex, Natural Rubber AdvReac Rash/Hives Verified 04/20/19 08:23 Exam Vital Signs Temp Pulse Resp BP Pulse Ox 10/04/19 08:41 97.5 F L 86 16 124/76 98 Intake and Output 04/19/19 04/20/19 04/20/19 22:59 06:59 14:59 Other: Weight 102.965 kg In general, this is a well-developed, well-nourished white female in no acute distress. Her heart has a regular rhythm and rate without murmur. Her lungs are clear to auscultation bilaterally in all blackman. Her abdomen is gravid, nondistended, has normal active bowel sounds, is soft, nontender, and without any palpable masses aside from uterine fundus. Her extremities are without any cyanosis, clubbing, or edema and are nontender to palpation bilaterally. Digital cervical examination is deferred. Results Result Diagrams: 04/20/19 08:35 Abnormal Lab Results - Last 24 Hours (Table) 04/20/19 Range/Units 08:35 WBC 11.2 H (3.8-10.6) k/uL Neutrophils # 8.0 H (1.3-7.7) k/uL Assessment and Plan (1) Family planning Current Visit: Yes Status: Acute Code(s): Z30.09 - ENCOUNTER FOR OTH GENERAL CNSL AND ADVICE ON CONTRACEPTION SNOMED Code(s): 000003987 (2) Term Current Visit: Yes Status: Acute Code(s): Z34.80 - ENCOUNTER FOR SUPRVSN OF NORMAL , UNSP TRIMESTER SNOMED Code(s): 33335803 (3) Previous section Current Visit: Yes Status: Acute Code(s): Z98.891 - HISTORY OF UTERINE SCAR FROM PREVIOUS SURGERY SNOMED Code(s): 070138298 Plan: The patient is admitted for repeat low transverse section with i ntraoperative bilateral tubal occlusion using Filshie clips. The risks and complications of the procedure been thoroughly discussed including the permanent nature of tubal ligation as well as the failure rate and risk for potential ectopic . She has understood all this and agrees to proceed.
[2019-04-20] MEDS ORDERED: diphenhydrAMINE 50 MG CAP PO PRN (10:53)
[2019-04-20] MEDS ORDERED: ONDANSETRON 4 MG/2 ML VIAL IVP PRN (10:53)
[2019-04-20] MEDS ORDERED: HYDROcodone/APAP 7.5-325MG 1 EACH TAB PO PRN (10:53)
[2019-04-20] MEDS ORDERED: diphenhydrAMINE 25 MG CAP PO PRN (10:53)
[2019-04-20] MEDS ORDERED: LANOLIN CREAM 5 GM TUBE TOPICAL PRN (10:53)
[2019-04-20] MEDS ORDERED: ACETAMINOPHEN TAB 325 MG TAB PO PRN (10:53)
[2019-04-20] MEDS ORDERED: SIMETHICONE 80 MG CHEWABLE PO PRN (10:53)
[2019-04-20] MEDS ORDERED: NALOXONE 0.4 MG/ML 1 ML VIAL IV PRN (10:53)
[2019-04-20] MEDS ORDERED: diphenhydrAMINE 50 MG/ML 1 ML VIAL IVP PRN ×2 (10:53)
[2019-04-20] MEDS ORDERED: ZOLPIDEM 5 MG TAB PO PRN (10:53)
[2019-04-20] MEDS ORDERED: METOCLOPRAMIDE 5 MG/ML 2 ML VIAL IVP PRN (10:53)
[2019-04-20] MEDS ORDERED: OXYTOCIN 20 UNITS/1000 ML NS 1,000 ML IV SCH (11:00)
--- NOTE | 2019-04-20 11:00 | P.OP ---
Date of Procedure: 04/20/19 Preoperative Diagnosis: #1. 40 and one sevenths weeks, previous 3 #2. Undesired fertility Postoperative Diagnosis: Same Procedure(s) Performed: #1. Repeat low transverse section #2. Intraoperative bilateral tubal occlusion with Filshie clips Anesthesia: spinal Surgeon: Adonis Astorga Business Job Titles #1: [employer] Estimated Blood Loss (ml): 600 IV fluids (ml): 1,100 Urine output (ml): 350 Pathology: none sent Condition: stable Disposition: floor Operative Findings: Intraoperatively, there was a moderate amount of scar tissue at the level of the fascia. The uterus and bladder flap were relatively unaffected. She was delivered of a viable 8 lbs. 5 oz. baby girl with Apgars of 9 at 1 minute and 9 at 5 minutes. There was light meconium-stained fluid present. The uterus, t ubes, and ovaries were entirely normal. The placenta was delivered manually, intact, and grossly normal aside from having meconium-stained membranes. There was a grossly normal three-vessel cord. Description of Procedure: The patient was prepped and draped in usual fashion after spinal anesthesia was administered by the anesthesiologist. A Pfannenstiel incision was made through pre-existing scar and extended into the abdominal cavity with minimal difficulty. There was a moderate amount of scarring at the fascia and rectus muscles. The bladder peritoneum was elevated, incised, and reflected distally. A 2 cm incision was made in the transverse plane of the lower uterine segment to enter the uterus at which time light meconium-stained fluid was present and note d. Incision was extended in both directions using the bandage scissors. The head was delivered up and through the incision where the nose and mouth were thoroughly suctioned. The fetus was immediately vigorous uterine prior to delivery of the shoulders. The remainder of the infant was delivered onto the field where the cord was doubly clamped, cut, and the was passed for resuscitative measures with weight and Apgars as noted above. A segment of cord was then doubly clamped, cut, and set aside should cord gases become necessary. The placenta was delivered manually and intact as noted above. The uterus was exteriorized and the interior cavity of the uterus was swept of any remaining placental or membranous fragments. The margins of the incision were grasped with Contreras clamps and the incision was closed with a running locking stitch of 0 chromic catgut from margin to margin in a single layer. Any small points of bleeding were made hemostatic with the Bovie. The posterior cul-de-sac was suctioned with a guard and attention was turned to the tubes. The patient reaffirmed her desire for tubal ligation and a Filshie clip was firmly placed across each fallopian tube in the isthmic portion approximately 2-3 cm from the cornu of. The uterus was replaced within the abdominal cavity and the gutters were swept of any remaining blood, fluid, or clot. The incision was reexamined and found to be hemostatic. The parietal peritoneum was loosely reapproximated with muscles were noted to be fairly significantly gaping. As result, a loose large [id number] stitch of 0 chromic catgut was utilized to reapproximate the muscles in the midline. The fascia was closed with 2 running stitches of 0 Vicryl proceeding from lateral margins to midpoint. The subcutaneous tissues were irrigated, made hemostatic with the Bovie, and reapproximated with a running stitch of 30 plain catgut. The skin was reapproximated with a running subcuticular stitch of 4-0 Vicryl followed by half-inch Steri-Strips placed with Mastisol. Estimated blood loss for the case is approximately 600 mL. There were no complications. All sponge, instrument, and needle counts were correct. The patient tolerated the procedure well and proceeded to the recovery room in stable condition. Both mother and infant are resting comfortably in recovery.
[2019-04-20] MEDS: LACTATED RINGERS 1,000 ML IV SCH ×2 (11:18→21:36)
[2019-04-20] MEDS: KETOROLAC 30 MG/ML 1 ML VIAL IVP PRN (19:57)
[2019-04-20] MEDS: SENNOSIDES-DOCUSATE SODIUM 1 EACH TAB PO SCH (21:36)
[2019-04-21] MEDS: KETOROLAC 30 MG/ML 1 ML VIAL IVP PRN ×2 (02:35→08:29)
[2019-04-21] MEDS: LACTATED RINGERS 1,000 ML IV SCH (04:43)
[2019-04-21 07:07] LABS: Basophils % (A) 0 %; Eosinophils # (A) 0.2 k/uL (0-0.7); Eosinophils % (A) 2 %; HCT 30.4 % (34.0-46.0); Lymphocytes # (A) 1.3 k/uL (1.0-4.8); Lymphocytes % (A) 14 %; MCH 29.6 pg (25.0-35.0); MCHC 32.4 g/dL (31.0-37.0); MCV 91.3 fL (80.0-100.0); Mean Platelet Volume 9.8; Monocytes # (A) 0.6 k/uL (0-1.0); Monocytes % (A) 7 %; Neutrophils # (A) 7.4 k/uL (1.3-7.7); Neutrophils % (A) 75 %; Platelet Count 121 k/uL (150-450); RBC 3.33 m/uL (3.80-5.40); RDW 13.3 % (11.5-15.5); WBC 9.8 k/uL (3.8-10.6)
[2019-04-21 07:09] LABS: HGB 9.9 gm/dL (11.4-16.0)
[2019-04-21] MEDS: SENNOSIDES-DOCUSATE SODIUM 1 EACH TAB PO SCH ×3 (08:30→19:20)
--- NOTE | 2019-04-21 11:22 | P.PN ---
Subjective Progress Note Date: 04/21/19 Principal diagnosis: Postoperative day #1 Slept well. Minimal pain. Minimal to moderate lochia rubra. No complaints. Objective - Vital Signs Vital signs: Vital Signs Temp 98.3 F 04/21/19 08:00 Pulse 79 04/21/19 08:00 Resp 16 04/21/19 08:00 BP 110/63 04/21/19 08:00 Pulse Ox 98 04/21/19 04:00 Intake & Output 04/20/19 04/21/19 04/21/19 18:59 06:59 18:59 Intake Total 1100 600 Output Total 1850 250 700 Balance -750 350 -700 Weight 102.965 kg Intake: IV 1100 Oral 600 Output: Urine 1250 250 700 Uretheral (Gimenez) 300 Estimated Blood Loss 600 - Constitutional General appearance: Present: average body habitus, cooperative - EENT Eyes: Present: PERRLA ENT: Present: hearing grossly normal - Neck Neck: Present: normal ROM - Respiratory Respiratory: bilateral: CTA - Cardiovascular Rhythm: regular - Gastrointestinal General gastrointestinal: Present: normal bowel sounds - Genitourinary Genitourinary Comment(s): Incision clean and dry, intact, Steri-Strips applied. Fundus firm, midline, symmetric, 18 week size. - Integumentary Integumentary: Present: normal - Neurologic Neurologic: Present: CNII-XII intact - Musculoskeletal Musculoskeletal: Present: gait normal, strength equal bilaterally - Psychiatric Psychiatric: Present: A&O x's 3, appropriate affect, intact judgment & insight - Labs CBC & Chem 7: 04/21/19 06:42 Labs: Abnormal Lab Results - Last 24 Hours (Table) 04/21/19 Range/Units 06:42 RBC 3.33 L (3.80-5.40) m/uL Hgb 9.9 L D (11.4-16.0) gm/dL Hct 30.4 L (34.0-46.0) % Plt Count 121 L (150-450) k/uL Assessment and Plan Assessment: Doing well postoperative day #1 Plan: Continue postoperative care. Advanced diet and activity. Time with Patient: Less than 30
[2019-04-21] MEDS: HYDROcodone/APAP 5-325MG 1 EACH TAB PO PRN ×2 (13:21→22:05)
[2019-04-21] MEDS: IBUPROFEN 600 MG TAB PO PRN (17:43)
--- NOTE | 2019-04-21 18:41 | P.PN ---
Progress Note - Text Progress Note Date: 04/21/19 Postop day 1 from with spinal Duramorph. Patient doing well, minimal pain, minimal pruritus. She been able to ambulate and urinate on her own. There is no paresthesias or lower extremity weakness. Anesthesia we'll sign off
[2019-04-22] MEDS: IBUPROFEN 600 MG TAB PO PRN ×2 (02:12→10:16)
[2019-04-22] MEDS: HYDROcodone/APAP 5-325MG 1 EACH TAB PO PRN (04:40)
[2019-04-22 08:09] VITALS: BP 129/76; PULSE 92; RESP 16; TEMP 98.1
[2019-04-22] MEDS: SENNOSIDES-DOCUSATE SODIUM 1 EACH TAB PO SCH (08:11)
--- NOTE | 2019-04-22 10:41 | P.DS ---
Providers Date of admission: 04/20/19 08:07 Expected date of discharge: 04/22/19 Attending physician: Adonis Astorga Primary care physician: Yrn Osoriomley [facility] Course: This is a 29-year-old white female 4 para 3003 EDC 04/19/2019 at 40 and one sevenths weeks' gestation. Patient presented for repeat section and tubal ligation. is remarkable for consistent marijuana use. Patient has a history of bipolar disorder and schizophrenia. She in addition is a tobacco smoker. Blood type is O+, rubella status immune. Group B strep cultures positive. We see dictated history and physical for details. Patient underwent a repeat low transverse section with tubal ligation on 04/20/2019. She gave to a liveborn female infant with scores of 9 and 9 at one and 5 minutes respectively. Infant weighed 8 lbs. 5 oz. or 3770 g. Tubal ligation was performed per her request. Please see dictated operative note for details. This morning the patient is doing well. She is voiding, ambulating, passing flatus without difficulty. Vital signs are stable and she is afebrile. Incision is clean and dry, intact, with Mastisol and Steri-Strips applied. It is nontender and well approximated. Uterus is firm, mobile, midline, nontender, symmetric and 18 week size. Patient's vital signs are stable and she has been afebrile. She is breast-feeding without difficulty. Lochia rubra is minimal. Patient is judged to be in good condition for discharge home. She will use ibuprofen products, 200 mg pills, 3 every 6 hours or for every 8 hours as needed for pain. Motrin 600 mg has been working well for the patient here. I have recommended that she continue taking her Lexapro 10 mg daily, and she has a prescription of this at home. She denies at this time any unusual ideation, and states she has good family support at home. She will call with any fevers shakes or chills, foul smelling or copious lochia, with the passage of large blood clots, with any pain not alleviated by [id number] products, or indeed with any concerns. She will follow-up in the office with her primary physician in 2 weeks. Patient Condition at Discharge: Good Plan - Discharge Summary Discharge Rx Participant: No New Discharge Prescriptions: No Action Ondansetron Odt [Zofran Odt] 4 mg PO Q8HR PRN #15 tab PRN Reason: Nausea And Vomiting Omeprazole [PriLOSEC] 40 mg PO DAILY Melatonin 3 mg PO HS Discharge Medication List Ondansetron Odt [Zofran Odt] 4 mg PO Q8HR PRN #15 tab 03/06/18 [Rx] Omeprazole [PriLOSEC] 40 mg PO DAILY 04/02/19 [History] Melatonin 3 mg PO HS 04/17/19 [History] Follow up Appointment(s)/Referral(s): Adonis Astorga MD [STAFF PHYSICIAN] - 2 Weeks
[2019-04-23] MEDS ORDERED: KETOROLAC 30 MG/ML 1 ML VIAL ONE (09:55)
[2019-04-23] MEDS ORDERED: diphenhydrAMINE 50 MG/ML 1 ML VIAL ONE (09:55)
[2019-04-23] MEDS ORDERED: ONDANSETRON 4 MG/2 ML VIAL ONE (09:55)
[2019-04-23] MEDS ORDERED: NALBUPHINE 10 MG/ML (1 ML AMP) ONE (09:55)
[2019-04-23] MEDS ORDERED: OXYTOCIN 10 UNIT/ML 1 ML VIAL ONE (09:55)
[2019-04-23] MEDS ORDERED: MORPHINE SULFATE (PF) 0.3 MG/0.3 ML SYR ONE (09:55)
== END 2019-04-22 11:09 | disposition home or self-care (01) | DRG 784 ==
LOC: 4FBP 08:07
PROVIDERS: ADMIT Obstetrics & Gynecology; ATTEND Obstetrics & Gynecology
PROC: 0UL70CZ Occlusion of Bilateral Fallopian Tubes with Extraluminal Device, Open Approach (ICD-10-PCS; 2019-04-20)
PROC: 10D00Z1 Extraction of Products of Conception, Low, Open Approach (ICD-10-PCS; principal; 2019-04-20 10:00)
DX: O34.211 Maternal care for low transverse scar from previous cesarean delivery (principal); O99.324 Drug use complicating childbirth; F12.90 Cannabis use, unspecified, uncomplicated; O99.824 Streptococcus B carrier state complicating childbirth; O77.0 Labor and delivery complicated by meconium in amniotic fluid; Z30.2 Encounter for sterilization; Z37.0 Single live birth; Z3A.40 40 weeks gestation of pregnancy; O99.62 Diseases of the digestive system complicating childbirth; N85.8 Other specified noninflammatory disorders of uterus; K21.9 Gastro-esophageal reflux disease without esophagitis; F11.11 Opioid abuse, in remission; O99.334 Smoking (tobacco) complicating childbirth; F17.200 Nicotine dependence, unspecified, uncomplicated; Z71.6 Tobacco abuse counseling; Z98.890 Other specified postprocedural states; Z79.899 Other long term (current) drug therapy; Z86.59 Personal history of other mental and behavioral disorders; Z88.8 Allergy status to other drugs, medicaments and biological substances; Z91.040 Latex allergy status; Z82.49 Family history of ischemic heart disease and other diseases of the circulatory system
CPT/HCPCS: 85025; 86850; 86900; 86901

== ENCOUNTER 2019-08-31 19:03 | Emergency (ER) | payer OTHER ==
--- NOTE | 2019-08-31 19:38 | ED ---
General Adult HPI - General Chief complaint: Anxiety Stated complaint: Anxiety Time Seen by Provider: 08/31/19 19:12 Source: patient, RN notes reviewed Mode of arrival: ambulatory Limitations: no limitations - History of Present Illness Initial comments: 29-year-old female with a past medical history of anxiety, bipolar disorder, depression, schizophrenia, borderline personality disorder presents to the emergency department for increased anxiety. Patient states she had to go home from work yesterday because of her anxiety. States she is feeling more sad than normal. She denies suicidal thoughts or thoughts of harming herself. Patient is 5 months. Patient states she was prescribed Lexapro for depression. Patient has never had thoughts of harming her child. at bedside states that she is seemed to be "more sad" than she normally. Patient did state that she made an appointment with her primary care provider today for Tuesday. Patient does not see psychiatry. Patient has no other complaints at this time including shortness of breath, chest pain, abdominal pain, nausea or vomiting, headache, or visual changes. - Related Data Home Medications Medication Instructions Recorded Confirmed Omeprazole [PriLOSEC] 40 mg PO DAILY 04/02/19 04/20/19 Melatonin 3 mg PO HS 04/17/19 04/20/19 Previous Rx's Medication Instructions Recorded Ondansetron Odt [Zofran Odt] 4 mg PO Q8HR PRN #15 tab 03/06/18 LORazepam [Ativan] 0.5 mg PO HS PRN 2 Days #2 tab 08/31/19 Allergies Allergy/AdvReac Type Severity Reaction Status Date / Time methylphenidate HCl Allergy Anaphylaxis Verified 08/31/19 19:08 [From Concerta] Latex, Natural Rubber AdvReac Rash/Hives Verified 08/31/19 19:08 Review of Systems ROS Statement: Those systems with pertinent positive or pertinent negative responses have been documented in the HPI. ROS Other: All systems not noted in ROS Statement are negative. Past Medical History Past Medical History: GERD/Reflux History of Any Multi-Drug Resistant Organisms: None Reported Past Surgical History: Section, Tonsillectomy, Tubal Ligation Past Anesthesia/Blood Transfusion Reactions: No Reported Reaction Past Psychological History: Anxiety, Bipolar, Depression, Schizophrenia Smoking Status: Current every day smoker Past Alcohol Use History: Daily Past Drug Use History: Marijuana - Past Family History Sister(s) Family Medical History: Cancer Father Family Medical History: Hypertension General Exam Limitations: no limitations General appearance: alert, in no apparent distress Head exam: Present: atraumatic, normocephalic, normal inspection Eye exam: Present: normal appearance, PERRL, EOMI. Absent: scleral icterus, conjunctival injection, periorbital swelling ENT exam: Present: normal exam, mucous membranes moist Neck exam: Present: normal inspection, full ROM. Absent: tenderness, meningismus, lymphadenopathy Respiratory exam: Present: normal lung sounds bilaterally. Absent: respiratory distress, wheezes, rales, rhonchi, stridor Cardiovascular Exam: Present: regular rate, normal rhythm, normal heart sounds. Absent: systolic murmur, diastolic murmur, rubs, gallop, clicks Psychiatric exam: Present: normal affect, normal mood. Absent: homicidal ideation, suicidal ideation Course Vital Signs 08/31/19 19:08 Temperature 98.5 F Pulse Rate 73 Respiratory 16 Rate Blood Pressure 124/80 O2 Sat by Pulse 100 Oximetry Medical Decision Making - Medical Decision Making Patient was evaluated by EPS. Ethel spoke with Dr Alamo who recommends sending patient home with 2 tabs 0.5 mg Ativan. Patient has an appointment with her primary care provider on Tuesday, this is who manages her psych meds. Safety plan was provided. Patient was given multiple resources including those for counseling in psychiatry. She was also given mobile crisis number. Patient will return here with any worsening symptoms including thoughts of suicide. I discussed this case with attending Dr. Hull who agrees with this assessment and treatment plan. I also discussed with patient that she cannot breast-feed while taking Ativan. She states that Ethel also discussed this with her. Disposition Clinical Impression: Acute anxiety Disposition: HOME SELF-CARE Condition: Good Instructions (If sedation given, give patient instructions): Generalized Anxiety Disorder (ED) Additional Instructions: Please take Ativan as needed for anxiety. However do not drive or operate machinery while taking this. Do not breast-feed while taking this Please follow-up with your appointment on Tuesday with her primary care provider. If you have any worsening symptoms however we do recommend you return to the emergency department. Prescriptions: LORazepam [Ativan] 0.5 mg PO HS PRN 2 Days #2 tab PRN Reason: Anxiety Is patient prescribed a controlled substance at d/c from ED?: No Referrals: Yrn Harry MD [Primary Care Provider] - 1-2 days Time of Disposition: 20:27
[2019-08-31] MEDS ORDERED: LORazepam 1 MG TAB PO STA (20:21)
[2019-08-31 21:09] VITALS: BP 124/80; PULSE 75; RESP 18; TEMP 98.5
== END 2019-08-31 20:50 | disposition home or self-care (01) ==
LOC: EC 19:03
DX: F41.9 Anxiety disorder, unspecified (principal); K21.9 Gastro-esophageal reflux disease without esophagitis; F17.200 Nicotine dependence, unspecified, uncomplicated; Z79.899 Other long term (current) drug therapy; Z91.040 Latex allergy status; Z91.048 Other nonmedicinal substance allergy status; Z88.8 Allergy status to other drugs, medicaments and biological substances
CPT/HCPCS: 82075; 99284

== ENCOUNTER → 2020-10-06 | Outpatient (CLI) | payer OTHER | END | disposition home or self-care (01) | LOC: LABWHC1 17:19 | PROVIDERS: ATTEND Pediatrics | DX: R05 Cough (principal); R09.89 Other specified symptoms and signs involving the circulatory and respiratory systems; R51.9 Headache, unspecified; Z20.822 Contact with and (suspected) exposure to COVID-19 | CPT/HCPCS: U0003; C9803 ==

== ENCOUNTER → 2021-04-29 | Outpatient (CLI) | payer OTHER ==
--- NOTE | 2021-04-29 15:02 | US ---
EXAMINATION TYPE: US pelvic complete DATE OF EXAM: 04/29/2021 COMPARISON: US 2010 CLINICAL HISTORY: N92.0 Excessive and frequent menstruation with reg. Pt states very heavy menses x m any years TECHNIQUE: Transabdominal (TA). Transabdominal sonographic images of the pelvis were acquired. Date of LMP: 04/26/2021 EXAM MEASUREMENTS: Uterus: 10.7 x 4.9 x 5.6 cm Endometrial Stripe: 0.5 cm Right Ovary: 3.1 x 2.6 x 2.6 cm Left Ovary: 2.8 x 2.5 x 2.4 cm 1. Uterus: Anteverted Heterogeneous 2. Endometrium: wnl 3. Right Ovary: wnl 4. Left Ovary: wnl 5. Bilateral Adnexa: wnl 6. Posterior cul-de-sac: wnl IMPRESSION: 1. Normal pelvic ultrasound
== END | disposition home or self-care (01) ==
LOC: RADUSWWP 13:40
PROVIDERS: ATTEND Pediatrics
DX: N92.0 Excessive and frequent menstruation with regular cycle (principal)
CPT/HCPCS: 76856

== ENCOUNTER → 2021-05-25 | Outpatient (CLI) | payer OTHER | END | disposition home or self-care (01) | LOC: LABWHC1 11:20 | PROVIDERS: ATTEND Pediatrics | DX: Z20.822 Contact with and (suspected) exposure to COVID-19 (principal); R51.9 Headache, unspecified; R05.9 Cough, unspecified; R06.02 Shortness of breath; R09.89 Other specified symptoms and signs involving the circulatory and respiratory systems; R09.81 Nasal congestion | CPT/HCPCS: 87502; U0003; C9803; U0005 ==

== ENCOUNTER → 2021-07-23 | Outpatient (CLI) | payer OTHER ==
--- NOTE | 2021-07-23 14:55 | XR ---
EXAMINATION TYPE: XR cervical spine comp, XR lumbosacral spine min 4V, XR thoracic spine 2V DATE OF EXAM: 07/23/2021 COMPARISON: NONE HISTORY: Neck and back pain. TECHNIQUE: Frontal and lateral views of entire spine including oblique projections cervical and lumba r spine and open mouth view upper cervical spine along with swimmer's view cervicothoracic junction. FINDINGS: There is levoconvex scoliosis centered upper thoracic spine. Reversal of normal cervical cu rvature centered at C5 level on the cervical spine. Prevertebral soft tissue appears within normal li mits. Vertebral body heights and disc space heights are maintained. Mild anterior spurring C5-C6 and C6-C7 levels. Oblique images appear within normal limits. C1-C2 articulation satisfactory on the open mouth frontal view. Overlying soft tissue is unremarkable. Thoracic spine shows satisfactory alignment. Vertebral body heights and disc space heights are mainta ined. Visualized ribs are intact bilaterally. There are 5 lumbar type vertebra with sacralized left L5 segment. This asymmetric assimilation left L 5-S1 level can cause chronic pain. Vertebral body height and disc space heights are preserved. Obliqu e images appear within normal limits. Tubal ligation clips in the bilateral pelvis are noted. IMPRESSION: As above.
== END | disposition home or self-care (01) ==
LOC: RADXRMAIN 14:13
PROVIDERS: ATTEND Physician Assistant
DX: M41.84 Other forms of scoliosis, thoracic region (principal); M25.78 Osteophyte, vertebrae
CPT/HCPCS: 72050; 72070; 72110

== ENCOUNTER → 2021-08-07 | Outpatient (CLI) | payer OTHER ==
--- NOTE | 2021-08-10 09:13 | USB ---
Reason for exam: clinical finding. History: Family history of breast cancer in paternal grandmother. Taking hormonal contraceptives. Physical Findings: Nurse Summary: lump left breast x 5 months at skin surface (nurse db). US Breast Limited LT Left limited breast ultrasound including focal area of concern, retroareolar and axilla demonstrates a 1.2 x 1.9 x 0.2cm cystic lesion at 5 o'clock in the dermis. These results were verbally communicated with the patient and result sheet given to the patient on 08/07/21. ASSESSMENT: Probably benign, BI-RAD 3 RECOMMENDATION: Clinical management of the left breast. Manage patient on a clinical basis. Consider dermatologic referral.
== END | disposition home or self-care (01) ==
LOC: RADUSWWP 13:46
PROVIDERS: ATTEND Pediatrics
DX: N60.02 Solitary cyst of left breast (principal); Z80.3 Family history of malignant neoplasm of breast

== ENCOUNTER 2021-09-27 16:44 | Emergency (ER) | payer OTHER ==
[2021-09-27] MEDS ORDERED: KETOROLAC 15 MG/ML 1 ML VIAL IM STA (17:06)
--- NOTE | 2021-09-27 17:48 | XR ---
EXAMINATION TYPE: XR humerus RT DATE OF EXAM: 09/27/2021 COMPARISON: NONE HISTORY: Pain TECHNIQUE: 3 views FINDINGS: Shoulder joint and elbow joint appear intact. I see no fracture nor dislocation. There are no pathologic calcifications. IMPRESSION: Negative right humerus exam.
--- NOTE | 2021-09-27 18:55 | XR ---
EXAMINATION TYPE: XR shoulder complete RT DATE OF EXAM: 09/27/2021 COMPARISON: NONE HISTORY: Shoulder pain TECHNIQUE: 3 views FINDINGS: There is no sign of fracture nor dislocation. Joint spaces are normal. There are no patholo gic calcifications. IMPRESSION: Negative right shoulder exam.
--- NOTE | 2021-09-27 19:06 | ED ---
Extremity Problem HPI - General Chief complaint: Extremity Problem,Nontraumatic Stated complaint: Rt arm pain Time Seen by Provider: 09/27/21 16:55 Source: patient Mode of arrival: ambulatory Limitations: no limitations - History of Present Illness Initial comments: Patient is a 31-year-old female who presents with a chief complaint right arm pain x 2 days. Patient reports she woke up with the right arm pain. There is no known mechanism of injury. Patient thought Anderson slept on it wrong. Patient reports she is hesitant to move the right arm due to pain. Patient took Motrin and Flexeril for pain with moderate relief. She denies numbness and tingling of the entire right upper extremity. She denies a history of DVT or pulmonary embolism. - Related Data Home Medications Medication Instructions Recorded Confirmed Omeprazole [PriLOSEC] 40 mg PO DAILY 04/02/19 04/20/19 Melatonin 3 mg PO HS 04/17/19 04/20/19 Previous Rx's Medication Instructions Recorded Ondansetron Odt [Zofran Odt] 4 mg PO Q8HR PRN #15 tab 03/06/18 LORazepam [Ativan] 0.5 mg PO HS PRN 2 Days #2 tab 08/31/19 Allergies Allergy/AdvReac Type Severity Reaction Status Date / Time methylphenidate HCl Allergy Anaphylaxis Verified 08/31/19 19:08 [From Concerta] Latex, Natural Rubber AdvReac Rash/Hives Verified 08/31/19 19:08 Review of Systems ROS Statement: Those systems with pertinent positive or pertinent negative responses have been documented in the HPI. ROS Other: All systems not noted in ROS Statement are negative. Past Medical History Past Medical History: GERD/Reflux History of Any Multi-Drug Resistant Organisms: None Reported Past Surgical History: Section, Tonsillectomy, Tubal Ligation Past Anesthesia/Blood Transfusion Reactions: No Reported Reaction Past Psychological History: Anxiety, Bipolar, Depression, Schizophrenia Smoking Status: Current every day smoker Past Alcohol Use History: Daily Past Drug Use History: Marijuana - Past Family History Sister(s) Family Medical History: Cancer Father Family Medical History: Hypertension General Exam Limitations: no limitations General appearance: alert, in no apparent distress Head exam: Present: atraumatic, normocephalic, normal inspection Eye exam: Present: normal appearance, PERRL, EOMI. Absent: scleral icterus, conjunctival injection, periorbital swelling Neck exam: Present: normal inspection Respiratory exam: Present: normal lung sounds bilaterally. Absent: respiratory distress, wheezes, rales, rhonchi, stridor Cardiovascular Exam: Present: regular rate, normal rhythm, normal heart sounds. Absent: systolic murmur, diastolic murmur, rubs, gallop, clicks GI/Abdominal exam: Present: soft, normal bowel sounds. Absent: distended, tenderness, guarding, rebound, rigid Right Shoulder Exam: Present: normal inspection, full ROM, tenderness (Anteriorly, inferior to the clavicle). Absent: swelling, ecchymosis, deformity, dislocation, erythema, tenderness over AC joint Upper Arm exam: Present: normal inspection (The right upper extremity is uniform in color with no swelling or erythema), full ROM, tenderness (In bicipital groove region). Absent: swelling, laceration, ecchymosis, deformity, dislocation, erythema Elbow exam: Present: normal inspection, full ROM. Absent: tenderness, swelling, ecchymosis, deformity, dislocation Forearm Wrist exam: Present: normal inspection, full ROM. Absent: tenderness Hand Wrist exam: Present: normal inspection, full ROM. Absent: tenderness Neuro motor exam: Present: wrist extension intact, thumb opposition intact, thumb IP flexion intact, thumb adduction intact, fingers 2-5 abduction intact Vascular: Present: normal capillary refill. Absent: pulse deficit radial art, pulse deficit ulnar art, pulse deficit brachial art Neurological exam: Present: alert, oriented X3, CN II-XII intact Psychiatric exam: Present: normal affect, normal mood Skin exam: Present: warm, dry, intact, normal color. Absent: rash Course Vital Signs 09/27/21 09/27/21 16:50 19:20 Temperature 98.2 F 98 F Pulse Rate 83 78 Respiratory 18 20 Rate Blood Pressure 152/102 129/75 O2 Sat by Pulse 98 97 Oximetry Medical Decision Making - Medical Decision Making This is a 31-year-old female who woke up with right upper arm pain 2 days ago. Thorough history and examination was performed. Patient is tender with palpation of the right bicipital groove region and anterior shoulder inferior to the clavicle however there is no swelling, erythema, ecchymosis, or deformity. Right shoulder and right humerus x-ray reveal no acute fracture or dislocation. Patient given Toradol for pain. On reevaluation patient reports improvement in pain. Results discussed with patient. At this time there is no definite etiology for her symptoms. She was placed in a right arm sling and referred to medical reimbursement specialist for further evaluation and management. Patient instructed to continue to take her previously prescribed Motrin and Flexeril for symptom relief as the medication improved her pain decently earlier today. I encouraged her to use ice therapy and rest the right arm. Return parameters discussed. Patient verbalizes understanding and is agreeable to plan. Dr. Ireland is my attending. Disposition Clinical Impression: Right arm pain, Right anterior shoulder pain Disposition: HOME SELF-CARE Condition: Good Instructions (If sedation given, give patient instructions): Tendinitis (ED), Tendon Rupture (ED) Additional Instructions: At this time there is no definite cause of your right arm pain. Please continue to use sling for symptomatic comfort. You may also ice the shoulder/arm for 20 minutes 4 times a day. Try your best to rest the right arm as much as possible. You may take Tylenol/Motrin as previously prescribed Flexeril as needed for pain. Follow-up with medical reimbursement specialist at earliest available appointment for further evaluation and management. Is patient prescribed a controlled substance at d/c from ED?: No Referrals: Yrn Harry MD [Primary Care Provider] - 1-2 days Ez Morris MD [STAFF PHYSICIAN] - 1-2 days Time of Disposition: 19:06
[2021-09-27 19:21] VITALS: BP 129/75; PULSE 78; RESP 20; TEMP 98
== END 2021-09-27 19:20 | disposition home or self-care (01) ==
LOC: EC 16:44
DX: M79.601 Pain in right arm (principal); M25.511 Pain in right shoulder; F17.200 Nicotine dependence, unspecified, uncomplicated; K21.9 Gastro-esophageal reflux disease without esophagitis; Z88.8 Allergy status to other drugs, medicaments and biological substances; Z91.040 Latex allergy status; Z79.899 Other long term (current) drug therapy
CPT/HCPCS: 73030; 73060; 99283; 96372; J1885

== ENCOUNTER 2022-05-02 19:36 | Observation (INO) | payer OTHER ==
[2022-05-02] MEDS ORDERED: SODIUM CHLORIDE 0.9% 1,000 ML IV STA (20:07)
[2022-05-02] MEDS ORDERED: MORPHINE SULFATE 4 MG/ML SYRINGE IV STA ×2 (20:07→23:02)
[2022-05-02] MEDS ORDERED: ONDANSETRON 4 MG/2 ML VIAL IVP STA (20:07)
--- NOTE | 2022-05-02 20:13 | ED ---
Abdominal Pain HPI - General Chief Complaint: Abdominal Pain Stated Complaint: ABD pain Time Seen by Provider: 05/02/22 19:58 Source: patient, RN notes reviewed Mode of arrival: ambulatory Limitations: no limitations - History of Present Illness Initial Comments: This is a pleasant 32-year-old female who presents to emergency complaint 2 days of abdominal pain. Patient states it seemed to start more generalized yesterday and now is located in the right lower quadrant and left right flank area. Pain is exacerbated by movement, coughing, palpation, patient states it does radiate to the right CVA area. Patient had mild diarrhea yesterday. She also had some nausea. No fever. No hematuria. Patient's appetite has been diminished. No headache, no fever or chills, no changes in vision or hearing, no sore throat or difficulty with speech, no neck pain, no chest pain or shortness of breath, no changes in urination or bowel movements, no numbness or tingling, no extremity pain, no skin rashes or lesions. Past medical, surgical, social, and family history reviewed. MD Complaint: abdominal pain - Related Data Home Medications Medication Instructions Recorded Confirmed Omeprazole [PriLOSEC] 40 mg PO HS 04/02/19 05/02/22 Liraglutide [Saxenda] 2 mg SQ DAILY 05/02/22 05/02/22 Allergies Allergy/AdvReac Type Severity Reaction Status Date / Time methylphenidate HCl Allergy Anaphylaxis Verified 05/02/22 21:23 [From Concerta] Latex, Natural Rubber AdvReac Rash/Hives Verified 05/02/22 21:23 Review of Systems ROS Statement: Those systems with pertinent positive or pertinent negative responses have been documented in the HPI. ROS Other: All systems not noted in ROS Statement are negative. Past Medical History Past Medical History: GERD/Reflux History of Any Multi-Drug Resistant Organisms: None Reported Past Surgical History: Section, Tonsillectomy, Tubal Ligation Past Anesthesia/Blood Transfusion Reactions: No Reported Reaction Past Psychological History: Anxiety, Bipolar, Depression, Schizophrenia Smoking Status: Current every day smoker Past Alcohol Use History: Daily Past Drug Use History: Marijuana - Past Family History Sister(s) Family Medical History: Cancer Father Family Medical History: Hypertension General Exam Limitations: no limitations Course Vital Signs 05/02/22 19:44 Temperature 98.5 F Pulse Rate 95 Respiratory 18 Rate Blood Pressure 127/77 O2 Sat by Pulse 100 Oximetry - Reevaluation(s) Reevaluation #1: 05/02/22 22:43 Medical record is reviewed Symptoms are improved here in the emergency department Patient is informed of results and questions answered Patient in no distress - Consultations Consultation #1: Case discussed in detail with the on-call surgeon, Dr. Gandhi-- surgeon come in to evaluate the patient. Medical Decision Making - Medical Decision Making Patient has acute uncomplicated appendicitis. Discussed case with Dr. Gandhi will come evaluate the patient. The case was discussed in detail with ED attending physician. Presentation, findings, treatment plan discussed in detail. [employer] Dr. Zepeda - Lab Data Result diagrams: 05/02/22 20:28 05/02/22 20:28 Lab Results 05/02/22 05/02/22 05/02/22 Range/Units 20:28 20:28 20:28 WBC 9.0 (3.8-10.6) k/uL RBC 4.45 (3.80-5.40) m/uL Hgb 9.6 L (11.4-16.0) gm/dL Hct 32.0 L (34.0-46.0) % MCV 72.1 L (80.0-100.0) fL MCH 21.7 L (25.0-35.0) pg MCHC 30.1 L (31.0-37.0) g/dL RDW 16.5 H (11.5-15.5) % Plt Count 224 (150-450) k/uL MPV 9.4 Neutrophils % (Manual) 58 % Band Neuts % (Manual) 4 % Lymphocytes % (Manual) 26 % Monocytes % (Manual) 3 % Eosinophils % (Manual) 6 % Metamyelocytes % 2 % Myelocytes % 1 % Neutrophils # (Manual) 5.50 (1.3-7.7) k/uL Lymphocytes # (Manual) 2.34 (1.0-4.8) k/uL Monocytes # (Manual) 0.27 (0-1.0) k/uL Eosinophils # (Manual) 0.54 (0-0.7) k/uL Metamyelocytes # (Man) 0.18 H (0) k/uL Myelocytes # (Manual) 0.09 H (0) k/uL Nucleated RBCs 0 (0-0) /100 WBC Hypochromasia Marked Anisocytosis Slight Microcytosis Moderate Stomatocytes Present Sodium (137-145) mmol/L Potassium (3.5-5.1) mmol/L Chloride (98-107) mmol/L Carbon Dioxide (22-30) mmol/L Anion Gap mmol/L BUN (7-17) mg/dL Creatinine (0.52-1.04) mg/dL Est GFR (CKD-EPI)AfAm (>60 ml/min/1.73 sqM) Est GFR (CKD-EPI)NonAf (>60 ml/min/1.73 sqM) Glucose (74-99) mg/dL Calcium (8.4-10.2) mg/dL Total Bilirubin (0.2-1.3) mg/dL AST (14-36) U/L ALT (4-34) U/L Alkaline Phosphatase (38-126) U/L Total Protein (6.3-8.2) g/dL Albumin (3.5-5.0) g/dL Lipase (23-300) U/L Urine Color Yellow Urine Appearance Clear (Clear) Urine pH 6.5 (5.0-8.0) Ur Specific Vance 1.020 (1.001-1.035) Urine Protein Trace H (Negative) Urine Glucose (UA) Negative (Negative) Urine Ketones Negative (Negative) Urine Blood Negative (Negative) Urine Nitrite Negative (Negative) Urine Bilirubin Negative (Negative) Urine Urobilinogen <2.0 (<2.0) mg/dL Ur Leukocyte Esterase Negative (Negative) Urine HCG, Qual Not Detected (Not Detectd) 05/02/22 Range/Units 20:28 WBC (3.8-10.6) k/uL RBC (3.80-5.40) m/uL Hgb (11.4-16.0) gm/dL Hct (34.0-46.0) % MCV (80.0-100.0) fL MCH (25.0-35.0) pg MCHC (31.0-37.0) g/dL RDW (11.5-15.5) % Plt Count (150-450) k/uL MPV Neutrophils % (Manual) % Band Neuts % (Manual) % Lymphocytes % (Manual) % Monocytes % (Manual) % Eosinophils % (Manual) % Metamyelocytes % % Myelocytes % % Neutrophils # (Manual) (1.3-7.7) k/uL Lymphocytes # (Manual) (1.0-4.8) k/uL Monocytes # (Manual) (0-1.0) k/uL Eosinophils # (Manual) (0-0.7) k/uL Metamyelocytes # (Man) (0) k/uL Myelocytes # (Manual) (0) k/uL Nucleated RBCs (0-0) /100 WBC Hypochromasia Anisocytosis Microcytosis Stomatocytes Sodium 138 (137-145) mmol/L Potassium 3.7 (3.5-5.1) mmol/L Chloride 103 (98-107) mmol/L Carbon Dioxide 22 (22-30) mmol/L Anion Gap 13 mmol/L BUN 10 (7-17) mg/dL Creatinine 0.71 (0.52-1.04) mg/dL Est GFR (CKD-EPI)AfAm >90 (>60 ml/min/1.73 sqM) Est GFR (CKD-EPI)NonAf >90 (>60 ml/min/1.73 sqM) Glucose 78 (74-99) mg/dL Calcium 9.3 (8.4-10.2) mg/dL Total Bilirubin 0.3 (0.2-1.3) mg/dL AST 24 (14-36) U/L ALT 22 (4-34) U/L Alkaline Phosphatase 84 (38-126) U/L Total Protein 7.1 (6.3-8.2) g/dL Albumin 4.4 (3.5-5.0) g/dL Lipase 639 H (23-300) U/L Urine Color Urine Appearance (Clear) Urine pH (5.0-8.0) Ur Specific Vance (1.001-1.035) Urine Protein (Negative) Urine Glucose (UA) (Negative) Urine Ketones (Negative) Urine Blood (Negative) Urine Nitrite (Negative) Urine Bilirubin (Negative) Urine Urobilinogen (<2.0) mg/dL Ur Leukocyte Esterase (Negative) Urine HCG, Qual (Not Detectd) Disposition Clinical Impression: Acute appendicitis Disposition: [facility] Condition: Stable Is patient prescribed a controlled substance at d/c from ED?: No Decision to Admit Reason: Admit from EC Decision Time: 22:44
[2022-05-02 20:35] LABS: Appearance,Urine Clear (Clear); Bilirubin,Urine Negative (Negative); Blood,Urine Negative (Negative); Color,Urine Yellow; Glucose,Urine (UA) Negative (Negative); Ketones,Urine Negative (Negative); Leukocyte Esterase,Urine Negative (Negative); Nitrite,Urine Negative (Negative); PH, Urine 6.5 (5.0-8.0); Protein,Urine Trace (Negative); Urobilinogen,Urine <2.0 mg/dL (<2.0)
[2022-05-02 20:39] LABS: Anisocytosis Slight; HGB 9.6 gm/dL (11.4-16.0); Hypochromasia Marked; MCH 21.7 pg (25.0-35.0); MCHC 30.1 g/dL (31.0-37.0); MCV 72.1 fL (80.0-100.0); Mean Platelet Volume 9.4; Microcytosis Moderate; Platelet Count 224 k/uL (150-450); RBC 4.45 m/uL (3.80-5.40); RDW 16.5 % (11.5-15.5)
[2022-05-02 20:41] LABS: ALT 22 U/L (4-34); AST 24 U/L (14-36); African American GFR (CKD) >90 (>60 ml/min/1.73 sqM); Albumin 4.4 g/dL (3.5-5.0); Alkaline Phosphatase 84 U/L (38-126); Anion Gap 13 mmol/L; Blood Urea Nitrogen 10 mg/dL (7-17); Calcium 9.3 mg/dL (8.4-10.2); Carbon Dioxide 22 mmol/L (22-30); Chloride 103 mmol/L (98-107); Glucose 78 mg/dL (74-99); Lipase 639 U/L (23-300); Non-African American GFR(CKD) >90 (>60 ml/min/1.73 sqM); Potassium 3.7 mmol/L (3.5-5.1); Sodium 138 mmol/L (137-145); Total Bilirubin 0.3 mg/dL (0.2-1.3); Total Protein 7.1 g/dL (6.3-8.2)
[2022-05-02 21:04] LABS: Band Neutrophils % 4 %; Eosinophils # (M) 0.54 k/uL (0-0.7); Lymphocytes # (M) 2.34 k/uL (1.0-4.8); Metamyelocytes # (M) 0.18 k/uL (0); Metamyelocytes % 2 %; Monocytes # (M) 0.27 k/uL (0-1.0); Myelocytes # (M) 0.09 k/uL (0); Myelocytes % 1 %; Neutrophils % (M) 58 %; Nucleated Red Blood Cells 0 /100 WBC (0-0); Total Cells Counted 100
[2022-05-02 21:05] LABS: Stomatocytes Present
--- NOTE | 2022-05-02 21:43 | CT ---
EXAMINATION TYPE: CT abdomen pelvis w con CT DLP: 1404.6 mGycm, Automated exposure control for dose reduction was used. DATE OF EXAM: 05/02/2022 9:16 PM COMPARISON: Pelvic ultrasound 04/29/2021 CLINICAL INDICATION:Female, 32 years old with history of Right lower quadrant abdominal pain; rlq renard n TECHNIQUE: Axial CT of the abdomen and pelvis. Sagittal and coronal reformats were created on a [employer] workstation. Contrast used:100 mL of Isovue 300 with IV Contrast, Oral contrast used: without Oral Contrast FINDINGS: LOWER CHEST: Unremarkable ABDOMEN LIVER: Unremarkable GALLBLADDER AND BILE DUCTS: Unremarkable. PANCREAS: Unremarkable. SPLEEN: Unremarkable. ADRENAL GLANDS: Unremarkable. KIDNEYS AND URETERS: Punctate nonobstructing right upper pole renal calculus. No hydronephrosis. Uret ers are unremarkable. PELVIS BLADDER: Unremarkable REPRODUCTIVE: Bilateral tubal ligation clips. No suspicious adnexal lesions. ABDOMEN & PELVIS STOMACH AND BOWEL: Stomach and duodenum are unremarkable No evidence of bowel obstruction. Dilated ap pendix measuring up to 10mm in width (series 202, image 51) with wall thickening. Periappendiceal fat stranding without evidence for wall fluid collection. No finding to suggest perforation. Hyperdense material within the cecum and transverse colon, likely related to medication versus ingested food par ticles. PERITONEUM: No evidence of pneumoperitoneum or free fluid. VASCULATURE: No evidence of aortic aneurysm. MUSCULOSKELETAL: Sacralization of the L5 vertebral body. No acute osseous abnormalities. LYMPH NODES: Few prominent lymph nodes within the right lower quadrant, largest individual lymph node measures up to 8 mm in short axis. No additional adenopathy within the abdomen or pelvis. SOFT TISSUE/ABDOMINAL WALL: Unremarkable IMPRESSION: 1. Findings consistent with acute uncomplicated appendicitis. 2. Punctate non-obstructing right renal calculus.
[2022-05-02] MEDS ORDERED: PIPERACILLIN-TAZOBACTAM 3.375 GM in SODIUM CHLORIDE 0.9% 100 ML IVPB STA (22:42)
[2022-05-02] MEDS ORDERED: cefTRIAXone IN SWFI 1,000 MG/10 ML SYRINGE IVP STA (22:57)
[2022-05-02] MEDS ORDERED: metroNIDAZOLE-NS PMX 500 MG in SALINE 1 100ML.BAG IVPB STA (22:58)
[2022-05-02] MEDS ORDERED: ONDANSETRON 4 MG/2 ML VIAL IVP PRN (23:00)
[2022-05-02] MEDS ORDERED: NALOXONE 0.4 MG/ML 1 ML VIAL IV PRN ×2 (23:00→23:16)
[2022-05-02] MEDS ORDERED: MORPHINE SULFATE 4 MG/ML SYRINGE IV PRN (23:00)
[2022-05-02] MEDS ORDERED: KETOROLAC 15 MG/ML 1 ML VIAL IVP PRN (23:16)
[2022-05-02] MEDS ORDERED: ACETAMINOPHEN TAB 325 MG TAB PO PRN (23:16)
--- NOTE | 2022-05-02 23:41 | P.GSHP ---
History of Present Illness H&P Date: 05/02/22 Chief Complaint: Acute abdominal pain, appendicitis visualized on CT Patient is a 32-year-old lady who presents to [facility] emergency department the evening of 05/02/2022 with chief complaint of less than 24 hours of progressive stabbing abdominal pain that started at the periumbilical position and came to rest in the right lower quadrant. She admits to subjective chills and waxing and waning nausea with a few bouts of nonbloody emesis as well as several bouts of diarrhea prior to presentation. She's never had similar symptoms before. She's never undergone any manner of endoscopy, has no known personal history of inflammatory bowel disease. Surgical history is significant for delivery 4 and tubal ligation. She denies signs of chronic GI bleeding, does admit to heavy menses. Laboratory studies were significant for a microcytic hypochromic anemia with elevated RDW. No pronounced leukocytosis. She has a hemodynamically stable appearance. Computed tomography scan of the abdomen and pelvis was obtained, official report and images were reviewed. Patient has a punctate nonobstructing right nephrolithiasis. The appendix is slightly enlarged with mild periappendiceal fat stranding consistent with uncomplicated acute appendicitis. No evidence of bowel obstruction, no free air or free fluid. She's not maintained on any manner of oral anticoagulants, denies any health problems of significance aside from a degree of gastroesophageal reflux disease. - Review of Systems All systems: negative - Constitutional Constitutional: Reports as per HPI, Reports chills Past Medical History Past Medical History: GERD/Reflux History of Any Multi-Drug Resistant Organisms: None Reported Past Surgical History: Section, Tonsillectomy, Tubal Ligation Past Anesthesia/Blood Transfusion Reactions: No Reported Reaction Past Psychological History: Anxiety, Bipolar, Depression, Schizophrenia Smoking Status: Current every day smoker Past Alcohol Use History: Daily Past Drug Use History: Marijuana - Past Family History Sister(s) Family Medical History: Cancer Father Family Medical History: Hypertension Medications and Allergies Home Medications Medication Instructions Recorded Confirmed Type Omeprazole [PriLOSEC] 40 mg PO HS 04/02/19 05/02/22 History Liraglutide [Saxenda] 2 mg SQ DAILY 05/02/22 05/02/22 History Allergies Allergy/AdvReac Type Severity Reaction Status Date / Time methylphenidate HCl Allergy Anaphylaxis Verified 05/02/22 21:23 [From Concerta] Latex, Natural Rubber AdvReac Rash/Hives Verified 05/02/22 21:23 Surgical - Exam Osteopathic Statement: *. No significant issues noted on an osteopathic structural exam other than those noted in the History and Physical/Consult. Vital Signs Temp Pulse Resp BP Pulse Ox 98.5 F 95 18 127/77 100 05/02/22 19:44 05/02/22 19:44 05/02/22 19:44 05/02/22 19:44 05/02/22 19:44 - General well developed, well nourished, no distress - Eyes PERRL, normal ocular movement - ENT normal pinna, normal nares, normal mucosa, no hearing loss - Neck trachea midline, no lymphadectomy, no venous distension - Respiratory normal respiratory effort, clear to auscultation - Cardiovascular Rhythm: regular - Abdomen Abdomen is soft with moderate to severe tenderness over McBurney's point. No guarding or rebound. There is a trace positive psoas sign, Rovsing sign is absent. No sign of diffuse peritonitis. - Neurologic normal coordination, normal sensation - Psychiatric oriented to time, oriented to person, oriented to place, speech is normal, memory intact Results - Labs 05/02/22 20:28 05/02/22 20:28 Abnormal Lab Results - Last 24 Hours (Table) 05/02/22 05/02/22 05/02/22 Range/Units 20:28 20:28 20:28 Hgb 9.6 L (11.4-16.0) gm/dL Hct 32.0 L (34.0-46.0) % MCV 72.1 L (80.0-100.0) fL MCH 21.7 L (25.0-35.0) pg MCHC 30.1 L (31.0-37.0) g/dL RDW 16.5 H (11.5-15.5) % Metamyelocytes # (Man) 0.18 H (0) k/uL Myelocytes # (Manual) 0.09 H (0) k/uL Lipase 639 H (23-300) U/L Urine Protein Trace H (Negative) Diabetes panel 05/02/22 Range/Units 20:28 Sodium 138 (137-145) mmol/L Potassium 3.7 (3.5-5.1) mmol/L Chloride 103 (98-107) mmol/L Carbon Dioxide 22 (22-30) mmol/L BUN 10 (7-17) mg/dL Creatinine 0.71 (0.52-1.04) mg/dL Glucose 78 (74-99) mg/dL Calcium 9.3 (8.4-10.2) mg/dL AST 24 (14-36) U/L ALT 22 (4-34) U/L Alkaline Phosphatase 84 (38-126) U/L Total Protein 7.1 (6.3-8.2) g/dL Albumin 4.4 (3.5-5.0) g/dL Calcium panel 05/02/22 Range/Units 20:28 Calcium 9.3 (8.4-10.2) mg/dL Albumin 4.4 (3.5-5.0) g/dL Pituitary panel 05/02/22 Range/Units 20:28 Sodium 138 (137-145) mmol/L Potassium 3.7 (3.5-5.1) mmol/L Chloride 103 (98-107) mmol/L Carbon Dioxide 22 (22-30) mmol/L BUN 10 (7-17) mg/dL Creatinine 0.71 (0.52-1.04) mg/dL Glucose 78 (74-99) mg/dL Calcium 9.3 (8.4-10.2) mg/dL Adrenal panel 05/02/22 Range/Units 20:28 Sodium 138 (137-145) mmol/L Potassium 3.7 (3.5-5.1) mmol/L Chloride 103 (98-107) mmol/L Carbon Dioxide 22 (22-30) mmol/L BUN 10 (7-17) mg/dL Creatinine 0.71 (0.52-1.04) mg/dL Glucose 78 (74-99) mg/dL Calcium 9.3 (8.4-10.2) mg/dL Total Bilirubin 0.3 (0.2-1.3) mg/dL AST 24 (14-36) U/L ALT 22 (4-34) U/L Alkaline Phosphatase 84 (38-126) U/L Total Protein 7.1 (6.3-8.2) g/dL Albumin 4.4 (3.5-5.0) g/dL - Imaging CT scan - abdomen: report reviewed, image reviewed CT scan - pelvis: report reviewed, image reviewed Assessment and Plan Assessment: 32-year-old lady with clinical history, physical exam, and diagnostic imaging consistent with acute uncomplicated appendicitis. Microcytic, hypochromic anemia in the setting of heavy menses, no reported signs of GI bleeding. Interval incidental finding of nonobstructing right nephrolithiasis, urinalysis negative. Gastroesophageal reflux disease by history. Plan: Options for treatment were discussed with the patient. She like to move forward with laparoscopic, possible open appendectomy and gave informed consent for the same after discussion of risks, benefits, and alternatives to treatment. She'll receive appropriate preoperative broad-spectrum antibiotics. She'll be admitted to my care postoperatively. If there is no evidence of of rupture or abscess I expect she may be ready for discharge home by tomorrow afternoon. Time with Patient: Greater than 30
[2022-05-03] MEDS ORDERED: NEOSTIGMINE 1 MG/ML 10 ML VIAL ONE (00:17)
[2022-05-03] MEDS ORDERED: PROPOFOL 10 MG/ML 20 ML VIAL IV ONE (00:17)
[2022-05-03] MEDS ORDERED: fentaNYL (PF) 50 MCG/ML 2 ML AMP ONE (00:17)
[2022-05-03] MEDS ORDERED: MIDAZOLAM 2 MG/2 ML VIAL ONE (00:17)
[2022-05-03] MEDS ORDERED: SUCCINYLCHOLINE CHLORIDE 200 MG/10 ML VIAL IV ONE (00:17)
[2022-05-03] MEDS ORDERED: GLYCOPYRROLATE 0.2 MG/ML 2 ML VIAL ONE (00:17)
[2022-05-03] MEDS ORDERED: KETOROLAC 15 MG/ML 1 ML VIAL ONE (00:17)
[2022-05-03] MEDS ORDERED: DEXAMETHASONE SOD PHOSPHATE 10 MG/ML 1 ML VIAL ONE (00:17)
[2022-05-03] MEDS ORDERED: ROCURONIUM 10 MG/ML (5 ML VIAL) IV ONE (00:17)
[2022-05-03] MEDS ORDERED: LACTATED RINGERS 1,000 ML BAG IV ONE (00:38)
[2022-05-03] MEDS ORDERED: BUPIVACAINE (PF) 0.25% 30 ML VIAL ONE (00:38)
--- NOTE | 2022-05-03 01:37 | P.OP ---
Date of Procedure: 05/03/22 Preoperative Diagnosis: Acute appendicitis Postoperative Diagnosis: Acute appendicitis without rupture or abscess, intra-abdominal adhesions. Procedure(s) Performed: Laparoscopic appendectomy, lysis of intra-abdominal adhesions. Anesthesia: CORRINEA, local Surgeon: Rikki Gandhi Estimated Blood Loss (ml): 5 Pathology: other (Appendix submitted to pathology) Condition: stable Disposition: PACU Indications for Procedure: Patient is a 32-year-old lady who presented to [facility] emergency department the evening of 05/02/2022 with chief complaint of less than 24 hours of progressive pain that started the periumbilical position he came to rest in the right lower quadrant is accompanied by subjective chills, nausea and emesis. Laboratory studies will unimpressive aside from evidence of a chronic microcytic, hypochromic anemia. Computed tomography scan of the abdomen and pelvis was consistent with acute uncomplicated appendicitis. She wishes to move forward with surgery and gave informed consent for laparoscopic appendectomy, possible open surgery after discussion of risks, benefit and alternatives to treatment. She received appropriate broad spectrum preoperative antibiotics. Operative Findings: Acute appendicitis without rupture or abscess, intra-abdominal adhesions. Description of Procedure: Patient was taken to the operative suite and placed in supine position. Following administration of general endotracheal anesthesia she was prepped and draped in sterile fashion. Local anesthetic was administered a palmers point in the left upper quadrant, small incision made with 11 blade and abdomen entered under laparoscopic visualization with 5 mm port. Abdomen was insufflated and surveyed, no apparent injury or bleeding were noted. There were some adhesions from the omentum to the infraumbilical area over the area of planned suprapubic port. A second 5 mm port was placed at the umbilical position, palmers point port upsized to 11 mm and omental adhesions over the pelvis taken down with LigaSure. A third 5 mm port was then placed under laparoscopic guidance so at the suprapubic position. Cecum was readily identified, appendix was anteverted on a somewhat retroperitoneal course. Window was created bluntly at the junction from the appendix to the cecum and appendix divided at its confluence with Endo LUIS tri-staple Liriano load.. Mesoappendix, appendiceal artery and peritoneal reflection over the appendix were taken down with LigaSure. There was no evidence of rupture or abscess. No evidence of peritonitis seen. Appendix was retrieved with an Endo Catch bag through the 11 mm port site and submitted. Staple line was intact, hemostasis excellent. Pelvis was inspected and the previously placed tubal ligation clips remained in good position. No evidence of ovarian or uterine pathology seen. No significant free fluid in the pelvis. Posterior fascial block was performed with quarter percent Marcaine at the palmers point port and fascia at this position closed with 0 Vicryl tie and Momo-Eyal suture passer in [id number] fashion. Abdomen was desufflated, all ports withdrawn and skin over each trocar site closed with interrupted inverted 3-0 Vicryl dermal suture and incisions dressed with skin adhesive. Patient was subsequently extubated and transferred to the postanesthesia care unit in stable condition. If she does well postoperatively she may be ready for discharge as soon as the afternoon of 05/03/2022.
[2022-05-03] MEDS: HEPARIN SODIUM,PORCINE/PF 5,000 UNIT/0.5 ML SYRINGE SQ SCH ×2 (02:23→08:20)
[2022-05-03] MEDS: LACTATED RINGERS 1,000 ML IV SCH ×2 (02:23→08:22)
[2022-05-03] MEDS: SODIUM CHLORIDE 0.9% 1,000 ML IV SCH ×2 (02:23→07:50)
[2022-05-03] MEDS ORDERED: metroNIDAZOLE-NS PMX 500 MG in SALINE 1 100ML.BAG IVPB SCH (08:00)
[2022-05-03 08:34] VITALS: RESP 16; TEMP 98.1
[2022-05-03 10:52] LABS: Anisocytosis Slight; Basophils % (A) 0 %; Eosinophils % (A) 0 %; HCT 30.4 % (34.0-46.0); HGB 8.9 gm/dL (11.4-16.0); Hypochromasia Marked; Lymphocytes # (A) 0.6 k/uL (1.0-4.8); Lymphocytes % (A) 4 %; MCH 21.5 pg (25.0-35.0); MCHC 29.2 g/dL (31.0-37.0); MCV 73.6 fL (80.0-100.0); Mean Platelet Volume 10.1; Microcytosis Moderate; Monocytes # (A) 0.2 k/uL (0-1.0); Monocytes % (A) 2 %; Neutrophils # (A) 13.9 k/uL (1.3-7.7); Neutrophils % (A) 94 %; Platelet Count 224 k/uL (150-450); RBC 4.13 m/uL (3.80-5.40); RDW 16.6 % (11.5-15.5); WBC 14.8 k/uL (3.8-10.6)
[2022-05-03 11:11] LABS: ALT 20 U/L (4-34); AST 24 U/L (14-36); African American GFR (CKD) >90 (>60 ml/min/1.73 sqM); Albumin 3.7 g/dL (3.5-5.0); Alkaline Phosphatase 79 U/L (38-126); Anion Gap 11 mmol/L; Blood Urea Nitrogen 8 mg/dL (7-17); Calcium 8.6 mg/dL (8.4-10.2); Carbon Dioxide 19 mmol/L (22-30); Chloride 105 mmol/L (98-107); Glucose 113 mg/dL (74-99); Non-African American GFR(CKD) >90 (>60 ml/min/1.73 sqM); Potassium 4.6 mmol/L (3.5-5.1); Sodium 135 mmol/L (137-145); Total Bilirubin 0.5 mg/dL (0.2-1.3)
--- NOTE | 2022-05-03 12:30 | P.DS ---
Providers Date of admission: 05/02/22 23:02 Attending physician: Rikki Gandhi DO Consults: 05/02/22 23:16 Consult Physician Routine Consulting Provider: [facility] Consult Reason/Comments: [facility] Do you want consulting provider notified?: Yes Primary care physician: Yrn Harry [facility] Course: 32-year-old female presented to the emergency department with abdominal pain. She was diagnosed with acute appendicitis and taken to the OR by Dr. Gandhi for laparoscopic appendectomy overnight. Postoperatively, patient was taken to the medical surgical floor and was doing well throughout the day. Her diet was advanced and she tolerated this without any nausea or vomiting. She states her only complaint is some incisional tenderness. She is requesting discharge from the hospital. This is reasonable based on her current presentation and postoperative status. She'll be discharged with pain medication and antibiotics. She was instructed to return to the emergency department should she have any worsening of her symptoms. Procedures: Laparoscopic appendectomy Patient Condition at Discharge: Stable Plan - Discharge Summary Discharge Rx Participant: No New Discharge Prescriptions: New Amoxic-Pot Clav 500-125 mg [Augmentin 500-125 mg] 1 tab PO Q12HR 5 Days #10 tab HYDROcodone/APAP 5-325MG [[place] 5-325] 1 tab PO Q6HR PRN 3 Days #12 tab PRN Reason: Pain Continue Omeprazole [PriLOSEC] 40 mg PO HS Liraglutide [Saxenda] 2 mg SQ DAILY Discharge Medication List Omeprazole [PriLOSEC] 40 mg PO HS 04/02/19 [History] Liraglutide [Saxenda] 2 mg SQ DAILY 05/02/22 [History] Amoxic-Pot Clav 500-125 mg [Augmentin 500-125 mg] 1 tab PO Q12HR 5 Days #10 tab 05/03/22 [Rx] HYDROcodone/APAP 5-325MG [[place] 5-325] 1 tab PO Q6HR PRN 3 Days #12 tab 05/03/22 [Rx] Follow up Appointment(s)/Referral(s): Yrn Harry MD [Primary Care Provider] - 1-2 days Lacy Nunes DO [Doctor of Osteopathic Medicine] - 2 Weeks Patient Instructions/Handouts: Laparoscopic Appendectomy (DC) Activity/Diet/Wound Care/Special Instructions: No lifting greater than 5 pounds Okay to shower, do not scrub incision Take pain medication as necessary, take stool softener if taking narcotic pain meds Take antibiotics to completion Discharge Disposition: HOME SELF-CARE
[2022-05-03 13:41] VITALS: BP 124/74; PULSE 71
== END 2022-05-03 13:37 | disposition home or self-care (01) ==
LOC: EC 19:36 → 3SCARD 23:02
PROVIDERS: ADMIT Surgery; ATTEND Surgery
DX: K35.80 Unspecified acute appendicitis (principal); K66.0 Peritoneal adhesions (postprocedural) (postinfection); Z98.891 History of uterine scar from previous surgery; Z98.51 Tubal ligation status; N20.0 Calculus of kidney; K21.9 Gastro-esophageal reflux disease without esophagitis; D50.8 Other iron deficiency anemias; N92.0 Excessive and frequent menstruation with regular cycle; Z98.890 Other specified postprocedural states; F41.9 Anxiety disorder, unspecified; F31.9 Bipolar disorder, unspecified; F20.9 Schizophrenia, unspecified; F17.210 Nicotine dependence, cigarettes, uncomplicated; Z80.9 Family history of malignant neoplasm, unspecified; Z82.49 Family history of ischemic heart disease and other diseases of the circulatory system; Z87.442 Personal history of urinary calculi; Z79.899 Other long term (current) drug therapy; Z88.8 Allergy status to other drugs, medicaments and biological substances; Z91.040 Latex allergy status
CPT/HCPCS: 96376; 96374; 96375; 99285; 36415; 88304; 80053 ×2; 83690; 85025 ×2; 81003; 81025; 74177; 44970; G0378 ×2; J2250; J0330; J2270; J1100; J2710; J2405; J0696; J3010; J1885; J2704; Q9967; J1644